=== PATIENT | male | born 1975 | race Caucasian/White ===

== ENCOUNTER 2020-11-06 19:06 | Emergency (ER) | payer MEDICAID, SELFPAY ==
[2020-11-06 19:10] VITALS: BP 174/107; PULSE 79; RESP 12; TEMP 36.9; O2SAT 94; BMI 60.2
--- NOTE | 2020-11-06 20:06 | EKG12_ITS ---
Test Reason : DIZZY Blood Pressure : / mmHG Vent. Rate : 076 BPM Atrial Rate : 076 BPM P-R Int : 158 ms QRS Dur : 126 ms QT Int : 396 ms P-R-T Axes : 040 068 -11 degrees QTc Int : 445 ms Normal sinus rhythm Right bundle branch block Abnormal ECG Confirmed by KENDALL FORD, BOOKER ([id number]), food expeditor ARCADIO MURPHY ([id number]) on 11/09/2020 9:23:24 AM Referred By: PHOEBE Confirmed By:ELIS ARGUETA MD
--- NOTE | 2020-11-06 20:06 | EDS_ITS ---
HPI History of Present Illness Chief Complaint: Dizziness Informant: patient Narrative Narrative: Patient is a 45-year-old male who presents to the emergency department for dizziness sensation, right-sided headache. He states his initial symptoms started Thursday and have been persistent. No known aggravating or relieving factors. He has not tried anything for this. He currently rates his headache as a 3 out of 10. He denies any vision changes. No issues with word finding. He denies any weakness or loss of sensation in extremity. He states he has had some intermittent heart palpitations. He denies having any chest pain. Whenever he has a heart palpitations he does get some shortness of breath. He is currently denying any of these symptoms. He denies any leg swelling or calf pain. No history of coronary artery disease. He states that his right ear has been feeling full after something in it. He denies any sore throat, recent illness including any cough, cold, congestion. No fevers or chills. [facility] Medical History (Updated 11/06/20 @ 21:[address] Robbin Mcdonald DO) Diabetes Hyperlipidemia Hypertension Major depression Home Medications fluoxetine 60 mg PO DAILY 11/06/20 [History Last Taken Unknown] gabapentin 600 mg PO QHS 11/06/20 [History Last Taken Unknown] meclizine 25 mg PO TID PRN #15 tab 11/06/20 [Rx Last Taken Unknown] metformin 750 mg PO DAILY 11/06/20 [History Last Taken Unknown] ramipril 5 mg PO DAILY 11/06/20 [History Last Taken Unknown] Allergy/AdvReac Type Severity Reaction Status Date / Time No Known Allergies Allergy Verified 11/06/20 19:14 Social History Smoking Status: Former smoker ROS ROS ED Constitutional Constitutional ED: Denies chills or fever(s) Eyes Eyes: Denies blurry vision, change in vision or diplopia ENT ENT ED: Denies ear pain, epistaxis, rhinorrhea or sore throat Cardiovascular Cardiovascular: Denies chest pain or palpitations Respiratory/Chest Respiratory/Chest: Denies cough, dyspnea or dyspnea on exertion Gastrointestinal Gastrointestinal: Denies abdominal pain, diarrhea, nausea or vomiting Genitourinary Genitourinary ED: Denies dysuria, hematuria or urinary frequency Musculoskeletal Musculoskeletal: Denies back pain or neck pain Integumentary Denies rash Neurologic Neurologic: Reports headache(s) and other Details: Dizziness ; Denies weakness EXAM Physical Exam Const Vital Signs: 11/06/20 19:10 11/06/20 19:12 11/06/20 21:20 Temperature 98.5 F Temperature Source Oral Pulse Rate 79 75 Respiratory Rate 12 18 Respiratory Pattern Normal Blood Pressure 174/107 H 174/89 H Blood Pressure Mean 129 117 Pulse Ox 94 95 Oxygen Delivery Method Room Air Room Air 11/06/20 22:20 Temperature Temperature Source Pulse Rate 73 Respiratory Rate 17 Respiratory Pattern Blood Pressure 183/117 H Blood Pressure Mean Pulse Ox 94 Oxygen Delivery Method Positive well nourished and well developed General Appearance ED: well developed and NAD HEENT Reports normocephalic, head/scalp atraumatic, TM's clear and moist mucous membranes Tympanic Membrane ED: Yes TM's clear Eyes PERRL and EOMs intact bilaterally Eyes Narrative: Fatigable nystagmus to right. Neck supple General: Negative for tenderness Chest Wall inspection of chest normal Resp normal respiratory effort and clear to auscultation bilaterally Auscultation: Negative for rales, rhonchi or wheezes Cardio regular rate, regular rhythm and no murmurs GI normal to inspection, nondistended, normoactive bowel sounds and non-tender Palpation: soft; Negative for guarding or rebound tenderness present Back/Spine no CVA tenderness Extremity normal to inspection General Extremety ED: Negative for tenderness Neuro oriented x3, CN's II-XII intact bilaterally and no sensory deficits noted Neuro Narrative: No discoordination. NIH of 0. Sensorium / Orientation: alert Motor Exam: strength 5/5 throughout Psych mental status grossly normal Skin no rashes or lesions noted MDM MDM MDM Narrative Medical decision making narrative: Patient presents to the ED for what he feels like persistent vertigo symptoms. He also has a right-sided headache and ear fullness. He has been having some intermittent chest pains but is currently denying this. On arrival to the ED is hypertensive otherwise normal vital signs. Is in no acute distress. No focal deficits appreciated. Will check CT scan of the head as his symptoms have been persistent with a headache. Will check basic lab work and give a dose of meclizine for symptomatic treatment. Patient CT scan of his head did not reveal any acute intracranial abnormality. His lab work-up did not reveal any significant acute abnormality. At on reexamination after the meclizine he is feeling better. At this time will recommend symptomatic treatment at home. He is going to try either Zyrtec or Claritin for the ear discomfort. He is going to follow-up with his PCP. Return precautions are reviewed with him. He understands and is agreeable this plan. This time very low concern for stroke. This was discussed with him. All questions were answered. Lab Data Labs: Laboratory Results - last 24 hr 11/06/20 11/06/20 19:25 19:25 WBC 10.1 RBC 6.40 H Hgb 16.6 H Hct 52.9 MCV 82.7 MCH 25.9 L MCHC 31.4 L RDW Std Deviation 43.6 RDW Coeff of Henry 15.4 H Plt Count 252 MPV 10.8 Immature Gran % (Auto) 0.300 Neut % (Auto) 76.6 H Lymph % (Auto) 14.2 L [place] % (Auto) 6.9 Eos % (Auto) 1.5 Baso % (Auto) 0.5 Absolute Neuts (auto) 7.7 Absolute Lymphs (auto) 1.43 Nucleated RBC % 0 Sodium 139 Potassium 4.0 Chloride 101 Carbon Dioxide 33.0 H Anion Gap 5 BUN 11 Creatinine 0.77 Estim Creat Clear Calc 134.37 Est GFR (MDRD) Af Amer 141 Est GFR (MDRD) Non-Af 117 BUN/Creatinine Ratio 14.3 Glucose 153 H Calcium 9.4 Troponin I High Sens 41.4 Radiography Diagnostic Testing: Radiology Impression Brain CT 11/06/20 20:32 IMPRESSION: Normal unenhanced CT scan of the brain. Electronically Signed: Erasmo Carrasquillo MD at 21:11 EDT , Service support , Discharge Plan Triage Chief Complaint: Dizziness ED Provider: Robbin Mcdonald Dx/Rx/DC Orders Clinical Impression: Dizziness, Elevated blood pressure reading Instructions: ED Dizziness, Uncertain Cause Prescriptions: New meclizine 25 mg tablet 25 mg PO TID PRN (Reason: dizziness) Qty: 15 RF: 0 No Action fluoxetine 40 mg capsule 60 mg PO DAILY RF: 0 metformin 750 mg tablet extended release 24 hr 750 mg PO DAILY RF: 0 gabapentin 600 mg tablet 600 mg PO QHS RF: 0 ramipril 5 mg capsule 5 mg PO DAILY RF: 0 Referrals: RIAZ CHAUHAN [Other] Activity Restrictions/Additional Instructions: Please follow-up with your PCP in 1 to 2 days. If you develop any worsening symptoms then please come back to the emergency department for reevaluation. Disposition Disposition: Home, Self Care Discharge Date/Time: 11/06/20 22:20
[2020-11-06] MEDS: Meclizine HCl 25 MG Tablet PO (20:21)
[2020-11-06 20:28] LABS: Absolute Lymphocyte Count 1.43 X10^3/uL (0.83-4.51); Absolute Neutrophil Count 7.7 X10^3/uL (2.0-7.7); Basophil# 0.05 X10^3/uL; Basophil% 0.5 % (0-1); Eosinophil# 0.15 X10^3/uL; Eosinophils% 1.5 % (0-5); Hematocrit 52.9 % (40-54); Hemoglobin 16.6 g/dL (13.0-16.5); Lymphocyte # 1.43 X10^3/ul (0.83-4.51); Lymphocyte % 14.2 % (19-41); Mean Corp Hgb Conc 31.4 g/dL (32-36); Mean Corpuscular Hgb 25.9 pg (27.0-32.0); Mean Corpuscular Volume 82.7 fL (80-94); Mean Platelet Vol. 10.8 fl (6.2-12.0); Monocyte# 0.69 X10^3/uL; Monocyte% 6.9 % (0-10); NRBC Flagged by Analyzer 0 % (0-5); Neutrophil # 7.71 X10^3/uL (2.7-7.7); Neutrophil % 76.6 % (47-70); Platelet Count 252 K/mm3 (150-450); RBC Distribution Width CV 15.4 % (11.6-14.6); RBC Distribution Width SD 43.6 fl (35.1-43.9); White Blood Count 10.1 K/mm3 (4.4-11.0)
--- NOTE | 2020-11-06 20:32 | CT_ITS ---
STUDY: CT BRAIN WITHOUT CONTRAST REASON FOR EXAM: Male, 45 years old. R sided M[place], dizziness RADIATION DOSAGE (If Supplied By Facility): CTDIvol = ( 44.99 ) mGy, DLP = ( 863.60 ) mGycm TECHNIQUE: Transaxial CT imaging of the brain was performed without administration of intravenous contrast material. Individualized dose optimization techniques were used for this CT. COMPARISON: No relevant priors. FINDINGS: Normal soft tissue structures. Normal calvarium. Normal size ventricles and extra-axial spaces for the patient''s age. Normal white matter tracts of the cerebral hemispheres. Normal basal ganglia and thalami. Normal brainstem. Normal cerebellum. There is no intracranial hemorrhage. There are no findings of an acute ischemic infarction. Normal visualized paranasal sinuses. CT/Brain/Head without Contrast IMPRESSION: Normal unenhanced CT scan of the brain. Electronically Signed: Erasmo Carrasquillo MD at 21:11 EDT , Service support ,
[2020-11-06 20:41] LABS: Anion Gap 5 (5-15); BUN 11 mg/dL (7-18); BUN/Creat Ratio 14.3 RATIO (10-20); Calcium,Total 9.4 mg/dL (8.5-10.1); Chloride 101 mmol/L (98-107); Creatinine, Serum 0.77 mg/dL (0.70-1.30); EST Glomerular Filtration Rate 117 mL/min (>60); Est Glom Filt Rate - Afr Amer 141 mL/min (>60); Estimated Creatinine Clearance 134.37 ml/min; Glucose 153 mg/dL (74-106); Sodium Level 139 mmol/L (136-145); Troponin-I HS 41.4 pg/mL (3.0-78.5)
[2020-11-06 21:20] VITALS: BP 174/89; PULSE 75; RESP 18; O2SAT 95
[2020-11-06 22:20] VITALS: BP 183/117; PULSE 73; RESP 17; O2SAT 94
== END 2020-11-06 22:20 | disposition home or self-care (01) ==
PROVIDERS: Emergency Provider Emergency Medicine
DX: R42 Dizziness and giddiness (principal); I10 Essential (primary) hypertension; E11.9 Type 2 diabetes mellitus without complications; R51.9 Headache, unspecified; R00.2 Palpitations; R06.02 Shortness of breath; E78.5 Hyperlipidemia, unspecified; F32.9 Major depressive disorder, single episode, unspecified; Z79.84 Long term (current) use of oral hypoglycemic drugs; Z79.899 Other long term (current) drug therapy; Z87.891 Personal history of nicotine dependence
CPT/HCPCS: 70450; 80048; 84484; 85025; 93005; 99284; A4216

== ENCOUNTER 2021-10-03 09:40 | Emergency (ER) | payer MEDICAID, SELFPAY ==
[2021-10-03 09:41] VITALS: BP 189/100; PULSE 84; RESP 17; TEMP 36.8; O2SAT 88; BMI 54.0
--- NOTE | 2021-10-03 09:56 | EDS_ITS ---
HPI <EARL Steinberg - Last Filed: 10/03/21 13:29> History of Present Illness Chief Complaint: Suicidal Narrative Narrative: Patient was having an argument with his this morning and put a gun to his head. It was loaded but the safety was on. He states he wanted to hurt himself but then says he was just upset and trying to scare her. She called 911 and he was brought in by EMS. He states he does not feel suicidal and has never attempted to hurt himself before. Denies homicidal ideation. He has been under a lot of stress recently because his bmarsl-yn-pyz is on hospice. He sees a psychiatrist and counselor and takes fluoxetine for depression. He denies smoking or alcohol use but does occasionally use marijuana. Of note he was found to be mildly hypoxic at 88% and states he normally runs at 90% but does not wear O2. [facility] <EARL Steinberg - Last Filed: 10/03/21 13:29> [facility] Medical History (Updated 11/06/20 @ 21:[address] Robbin Mcdonald, ) Diabetes Hyperlipidemia Hypertension Major depression Home Medications fluoxetine 40 mg capsule 60 mg PO DAILY 11/06/20 [History Last Taken Unknown] gabapentin 600 mg tablet 600 mg PO QHS 11/06/20 [History Last Taken Unknown] metformin 750 mg tablet,extended release 24 hr 750 mg PO DAILY 11/06/20 [History Last Taken Unknown] amlodipine 5 mg-benazepril 20 mg capsule 1 cap PO DAILY 10/03/21 [History Last Taken Unknown] Allergy/AdvReac Type Severity Reaction Status Date / Time No Known Allergies Allergy Verified 11/06/20 19:14 Social History Smoking Status: Former smoker ROS <EARL Steinberg - Last Filed: 10/03/21 13:29> ROS ED ROS Narrative Constitutional: Negative for fever, chills, malaise. Eyes: Negative for visual change. ENT: Negative for sore throat, ear pain, rhinorrhea. CVS: Negative for palpitations, chest pain, syncope. Respiratory: Negative for shortness of breath, cough, orthopnea. GI: Negative for abdominal pain, nausea, vomiting, diarrhea, constipation, melena, hematochezia. : Negative for dysuria, hematuria or frequency. Neuro: Negative for headache, motor/sensory dysfunction. Skin: Negative for rash, abscess, or wound. Musc: Negative for joint pain, swelling, trauma. Heme: Negative for easy bruising, bleeding, lymphadenopathy. EXAM <EARL Steinberg - Last Filed: 10/03/21 13:29> Physical Exam Narrative Exam Narrative: CONST: Patient sitting in no acute distress. EYES: Normal inspection. NECK: Normal inspection. RESP: No respiratory distress, CTAB. CVS: Regular rate and rhythm, no murmur, no gallop. SKIN: Color normal, no rash, warm, dry, intact. EXTREMITIES: Normal appearance, no pedal edema. NEURO: Oriented x4. PSYCH: Normal affect. Calm, cooperative. Const Vital Signs: 10/03/21 09:41 10/03/21 10:47 10/03/21 13:46 Temperature 98.2 F 96.9 F L Temperature Source Oral Temporal Pulse Rate 84 74 72 Respiratory Rate 17 18 Blood Pressure 189/100 H 196/107 H 159/100 H Blood Pressure Mean 129 136 119 Pulse Ox 88 93 91 Oxygen Delivery Method Room Air Room Air Nasal Cannula Oxygen Flow Rate (L/min) 3 10/03/21 16:47 Temperature Temperature Source Pulse Rate 78 Respiratory Rate 16 Blood Pressure 154/92 H Blood Pressure Mean 112 Pulse Ox 92 Oxygen Delivery Method Nasal Cannula Oxygen Flow Rate (L/min) 3 <Dr. Myles Araujo DO - Last Filed: 10/03/21 17:19> Physical Exam Const Vital Signs: 10/03/21 09:41 10/03/21 10:47 10/03/21 13:46 Temperature 98.2 F 96.9 F L Temperature Source Oral Temporal Pulse Rate 84 74 72 Respiratory Rate 17 18 Blood Pressure 189/100 H 196/107 H 159/100 H Blood Pressure Mean 129 136 119 Pulse Ox 88 93 91 Oxygen Delivery Method Room Air Room Air Nasal Cannula Oxygen Flow Rate (L/min) 3 10/03/21 16:47 Temperature Temperature Source Pulse Rate 78 Respiratory Rate 16 Blood Pressure 154/92 H Blood Pressure Mean 112 Pulse Ox 92 Oxygen Delivery Method Nasal Cannula Oxygen Flow Rate (L/min) 3 MDM <EARL Steinberg - Last Filed: 10/03/21 13:29> MDM MDM Narrative Medical decision making narrative: EARL note: Patient presents with suicidal ideation and held a gun to his head this morning. He appears well and nontoxic. Vital signs within normal limits. He has a somewhat flat affect but is calm and cooperative during my exam. Labs are within normal limits. Tox screen positive for THC, alcohol negative. COVID-19 test negative. Patient was initially 88% on room air and placed on 2 L but was weaned and is now 93% on room air. He states he always runs around 90%. He does have very scant wheezing might have some underlying pulmonary disease but no acute issues today. Patient is medically cleared for transfer to psychiatric facility. Was evaluated by social work who will work on placement. 1. Suicidal ideation I have personally performed a face to face assessment of the patient and have reviewed the SUHAIL Note. I performed a substantive portion of the visit including all aspects of the following. My gardner findings include: History: Patient is a 46-year-old male who presents with suicidal gesture that occurred today. Patient states he was in an argument with his . Patient states he put a gun to his head. Patient states the gun was loaded with the safety was on. Patient states he has a history of depression and takes fluoxetine for that. Patient states he sees a psychiatrist and a counselor. Currently, patient denies any suicidal or homicidal ideations. Exam: Vital signs are stable except for an elevated blood pressure of 196/107. Patient is afebrile. Patient is in no acute distress. Oral mucosa is pink and moist. Neck is supple. Trachea is midline. There is no JVD. Heart was regular rate and rhythm. Lungs are clear and equal bilaterally. Abdomen is soft. Bowel sounds are normal. There is no tenderness. Cranial nerves II through XII are intact. There are no focal motor or sensory deficits noted. Patient does have a slightly flat affect. Patient makes good eye contact. Currently the patient denies any suicidal or homicidal ideations. Medical Decision Making: CBC was within normal limits. Basic metabolic profile was within normal limits. COVID-19 rapid antigen was obtained and was negative. Urine drug screen and serum alcohol levels were obtained and are pending. Portable 1 view chest x-ray was obtained. On my interpretation, lung bowles are clear. There is normal cardiac silhouette. Bony thorax is normal. There is no acute process noted. Radiologist also interpreted the x-ray and agrees. buffing line set up worker will evaluate the patient. Lab Data Labs: Laboratory Results - last 24 hr 10/03/21 10/03/21 10/03/21 10:40 10:40 10:40 WBC 11.0 RBC 6.11 Hgb 16.5 Hct 51.4 MCV 84.1 MCH 27.0 MCHC 32.1 RDW Std Deviation 44.1 H RDW Coeff of Henry 14.7 H Plt Count 236 MPV 10.2 Immature Gran % (Auto) 0.600 Neut % (Auto) 77.3 H Lymph % (Auto) 15.4 L [place] % (Auto) 4.8 Eos % (Auto) 1.4 Baso % (Auto) 0.5 Absolute Neuts (auto) 8.5 H Absolute Lymphs (auto) 1.70 Nucleated RBC % 0 Sodium 139 Potassium 4.3 Chloride 102 Carbon Dioxide 33.0 H Anion Gap 4 L BUN 12 Creatinine 0.81 Estim Creat Clear Calc 126.41 Est GFR (MDRD) Af Amer 132 Est GFR (MDRD) Non-Af 109 BUN/Creatinine Ratio 14.8 Glucose 167 H Calcium 9.1 Urine Opiates Screen Urine Methadone Screen Ur Barbiturates Screen Ur Phencyclidine Scrn Ur Amphetamines Screen MDMA (Ecstasy) Screen U Benzodiazepines Scrn Urine Cocaine Screen U Cannabinoids Screen Ur Drug Screen Comment Ethyl Alcohol < 3.0 10/03/21 11:12 WBC RBC Hgb Hct MCV MCH MCHC RDW Std Deviation RDW Coeff of Henry Plt Count MPV Immature Gran % (Auto) Neut % (Auto) Lymph % (Auto) [place] % (Auto) Eos % (Auto) Baso % (Auto) Absolute Neuts (auto) Absolute Lymphs (auto) Nucleated RBC % Sodium Potassium Chloride Carbon Dioxide Anion Gap BUN Creatinine Estim Creat Clear Calc Est GFR (MDRD) Af Amer Est GFR (MDRD) Non-Af BUN/Creatinine Ratio Glucose Calcium Urine Opiates Screen NEGATIVE Urine Methadone Screen NEGATIVE Ur Barbiturates Screen NEGATIVE Ur Phencyclidine Scrn NEGATIVE Ur Amphetamines Screen NEGATIVE MDMA (Ecstasy) Screen NEGATIVE U Benzodiazepines Scrn NEGATIVE Urine Cocaine Screen NEGATIVE U Cannabinoids Screen POSITIVE H Ur Drug Screen Comment Ethyl Alcohol Radiography Diagnostic Testing: Clinical Impression(s) from Imaging Studies Chest X-Ray 10/03/21 10:45 IMPRESSION: Normal x-ray examination of the chest. Electronically Signed: Soloomn Suresh MD at 11:12 EDT , <Dr. Myles Araujo, DO - Last Filed: 10/03/21 17:19> [facility] MDM Narrative Medical decision making narrative: PA note: Patient presents with suicidal ideation and held a gun to his head this morning. He appears well and nontoxic. Vital signs within normal limits. He has a somewhat flat affect but is calm and cooperative during my exam. Labs are within normal limits. Tox screen positive for THC, alcohol negative. COVID-19 test negative. Patient was initially 88% on room air and placed on 2 L but was weaned and is now 93% on room air. He states he always runs around 90%. He does have very scant wheezing might have some underlying pulmonary disease but no acute issues today. Patient is medically cleared for transfer to psychiatric facility. Was evaluated by social work who will work on placement. 1. Suicidal ideation I have personally performed a face to face assessment of the patient and have reviewed the SUHAIL Note. I performed a substantive portion of the visit including all aspects of the following. My gardner findings include: History: Patient is a 46-year-old male who presents with suicidal gesture that occurred today. Patient states he was in an argument with his . Patient states he put a gun to his head. Patient states the gun was loaded with the safety was on. Patient states he has a history of depression and takes fluoxetine for that. Patient states he sees a psychiatrist and a counselor. Currently, patient denies any suicidal or homicidal ideations. Exam: Vital signs are stable except for an elevated blood pressure of 196/107. Patient is afebrile. Patient is in no acute distress. Oral mucosa is pink and moist. Neck is supple. Trachea is midline. There is no JVD. Heart was regular rate and rhythm. Lungs are clear and equal bilaterally. Abdomen is soft. Bowel sounds are normal. There is no tenderness. Cranial nerves II through XII are intact. There are no focal motor or sensory deficits noted. Patient does have a slightly flat affect. Patient makes good eye contact. Currently the patient denies any suicidal or homicidal ideations. Medical Decision Making: CBC was within normal limits. Basic metabolic profile was within normal limits. COVID-19 rapid antigen was obtained and was negative. Urine drug screen and serum alcohol levels were obtained and are pending. Portable 1 view chest x-ray was obtained. On my interpretation, lung bowles are clear. There is normal cardiac silhouette. Bony thorax is normal. There is no acute process noted. Radiologist also interpreted the x-ray and agrees. buffing line set up worker will evaluate the patient. She felt the patient would require transfer to a psychiatric facility. She is attempting to have the patient placed. Patient is agreeable with plan. All questions were answered. Lab Data Attestation: I reviewed the patient's lab results. Labs: Laboratory Results - last 24 hr 10/03/21 10/03/21 10/03/21 10:40 10:40 10:40 WBC 11.0 RBC 6.11 Hgb 16.5 Hct 51.4 MCV 84.1 MCH 27.0 MCHC 32.1 RDW Std Deviation 44.1 H RDW Coeff of Henry 14.7 H Plt Count 236 MPV 10.2 Immature Gran % (Auto) 0.600 Neut % (Auto) 77.3 H Lymph % (Auto) 15.4 L [place] % (Auto) 4.8 Eos % (Auto) 1.4 Baso % (Auto) 0.5 Absolute Neuts (auto) 8.5 H Absolute Lymphs (auto) 1.70 Nucleated RBC % 0 Sodium 139 Potassium 4.3 Chloride 102 Carbon Dioxide 33.0 H Anion Gap 4 L BUN 12 Creatinine 0.81 Estim Creat Clear Calc 126.41 Est GFR (MDRD) Af Amer 132 Est GFR (MDRD) Non-Af 109 BUN/Creatinine Ratio 14.8 Glucose 167 H Calcium 9.1 Urine Opiates Screen Urine Methadone Screen Ur Barbiturates Screen Ur Phencyclidine Scrn Ur Amphetamines Screen MDMA (Ecstasy) Screen U Benzodiazepines Scrn Urine Cocaine Screen U Cannabinoids Screen Ur Drug Screen Comment Ethyl Alcohol < 3.0 10/03/21 11:12 WBC RBC Hgb Hct MCV MCH MCHC RDW Std Deviation RDW Coeff of Henry Plt Count MPV Immature Gran % (Auto) Neut % (Auto) Lymph % (Auto) [place] % (Auto) Eos % (Auto) Baso % (Auto) Absolute Neuts (auto) Absolute Lymphs (auto) Nucleated RBC % Sodium Potassium Chloride Carbon Dioxide Anion Gap BUN Creatinine Estim Creat Clear Calc Est GFR (MDRD) Af Amer Est GFR (MDRD) Non-Af BUN/Creatinine Ratio Glucose Calcium Urine Opiates Screen NEGATIVE Urine Methadone Screen NEGATIVE Ur Barbiturates Screen NEGATIVE Ur Phencyclidine Scrn NEGATIVE Ur Amphetamines Screen NEGATIVE MDMA (Ecstasy) Screen NEGATIVE U Benzodiazepines Scrn NEGATIVE Urine Cocaine Screen NEGATIVE U Cannabinoids Screen POSITIVE H Ur Drug Screen Comment Ethyl Alcohol Radiography Chest X-Ray - ED: 1 View, Read by ED Physician, Read by Radiologist and No Acute Disease Diagnostic Testing: Clinical Impression(s) from Imaging Studies Chest X-Ray 10/03/21 10:45 IMPRESSION: Normal x-ray examination of the chest. Electronically Signed: Solomon Suresh MD at 11:12 EDT Reading Location ID and State: [facility] / [place] , Service support , Discharge Plan Triage Chief Complaint: Suicidal ED Midlevel Provider: Munira Mitchell ED Provider: Myles Araujo Dx/Rx/DC Orders Prescriptions: No Action fluoxetine 40 mg capsule 60 mg PO DAILY Label Comments: Take 1 capsule by mouth once daily. metformin 750 mg tablet extended release 24 hr 750 mg PO DAILY Label Comments: Take 2 tablets by mouth daily with breakfast. Rx Instructions: 2 tabs gabapentin 600 mg tablet 600 mg PO QHS Label Comments: Take 1 tablet by mouth daily at bedtime for 90 days. amlodipine-benazepril 5-20 mg capsule 1 cap PO DAILY Label Comments: Take 1 capsule by mouth once daily. Primary Care Provider: RIAZ CHAUHAN Referrals: RIAZ CHAUHAN [Other]
--- NOTE | 2021-10-03 10:10 | ED.RN ---
NO SITTER AT THIS TIME PENDING SW ASSESSMENT PER PA
--- NOTE | 2021-10-03 10:45 | RAD_ITS ---
STUDY: X-RAY CHEST REASON FOR EXAM: Male, 46 years old. Cough TECHNIQUE: Single AP portable view of the chest. COMPARISON: None. FINDINGS: The lungs are clear and expanded. There is no demonstrated pleural abnormality. Normal size heart. Normal mediastinum and solitario. Normal visualized pulmonary arteries. Normal visualized aortic arch and descending thoracic aorta. Normal visualized thoracic spine. Normal visualized ribs, clavicles, and shoulders. There is no demonstrated abnormality of the visualized soft tissue structures of the upper abdomen. RAD/Chest 1 View (Portable) IMPRESSION: Normal x-ray examination of the chest. Electronically Signed: Solomon Suresh MD at 11:12 EDT ,
[2021-10-03 10:46] LABS: Absolute Neutrophil Count 8.5 X10^3/uL (2.0-7.7); Basophil# 0.05 X10^3/uL; Basophil% 0.5 % (0-1); Eosinophil# 0.15 X10^3/uL; Eosinophils% 1.4 % (0-5); Hematocrit 51.4 % (40-54); Hemoglobin 16.5 g/dL (13.0-16.5); Lymphocyte % 15.4 % (19-41); Mean Corp Hgb Conc 32.1 g/dL (32-36); Mean Corpuscular Volume 84.1 fL (80-94); Mean Platelet Vol. 10.2 fl (6.2-12.0); Monocyte# 0.53 X10^3/uL; Monocyte% 4.8 % (0-10); NRBC Flagged by Analyzer 0 % (0-5); Neutrophil # 8.54 X10^3/uL (2.7-7.7); Neutrophil % 77.3 % (47-70); Platelet Count 236 K/mm3 (150-450); RBC Distribution Width CV 14.7 % (11.6-14.6); RBC Distribution Width SD 44.1 fl (35.1-43.9); Red Blood Count 6.11 M/mm3 (4.6-6.2)
[2021-10-03 10:47] VITALS: BP 196/107; PULSE 74; O2SAT 93
[2021-10-03 11:00] LABS: Anion Gap 4 (5-15); BUN 12 mg/dL (7-18); BUN/Creat Ratio 14.8 RATIO (10-20); Calcium,Total 9.1 mg/dL (8.5-10.1); Chloride 102 mmol/L (98-107); Creatinine, Serum 0.81 mg/dL (0.70-1.30); EST Glomerular Filtration Rate 109 mL/min (>60); Est Glom Filt Rate - Afr Amer 132 mL/min (>60); Estimated Creatinine Clearance 126.41 ml/min; Glucose 167 mg/dL (74-106); Potassium 4.3 mmol/L (3.5-5.1); Sodium Level 139 mmol/L (136-145)
[2021-10-03 11:17] LABS: Alcohol, Blood (Medical)-Serum < 3.0 mg/dL
[2021-10-03 11:39] LABS: Amphetamine Urine VISTA NEGATIVE (<1000 ng/mL); Barbiturate Urine VISTA NEGATIVE (< 200 ng/mL); Benzodiazepine Urine VISTA NEGATIVE (< 200 ng/mL); Cocaine Urine VISTA NEGATIVE (< 300 ng/mL); Ecstacy Urine VISTA NEGATIVE (< 500 ng/mL); Methadone Urine VISTA NEGATIVE (< 300 ng/mL); PCP Urine VISTA NEGATIVE (< 25 ng/mL); THC Urine VISTA POSITIVE (< 50 ng/mL); Vista UDS pH Range 5
[2021-10-03 13:46] VITALS: BP 159/100; PULSE 72; RESP 18; TEMP 36.1; O2SAT 91
--- NOTE | 2021-10-03 14:17 | ED.RN ---
Per Keesha from social work and Dr Araujo pt is not suicidal at this time and it is ok to discontinue sitter.
[2021-10-03 16:47] VITALS: BP 154/92; PULSE 78; RESP 16; O2SAT 92
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
[2021-10-03 18:18] VITALS: O2SAT 93
--- NOTE | 2021-10-03 19:41 | CM.ED ---
Addendum entered by Keesha Galvez 10/03/21 21:35: KATIE received call from [facility]. Pt has been accepted to [facility]. Accepting physician is Dr. Diane. Pt is going to [facility]. RN to RN [phone]. KATIE updated RN. KATIE faxed [place] Sl[place] to [facility]. SW in to speak with pt. SW updated pt that he has been accepted to [facility] and will discharge there. Pt gave permission for this worker to call Nanci to update. KATIE placed a call to pt's Nanci and updated her that pt will go to [facility]. Nanci asked what pt is being treated for medically. KATIE informed Nanci that medically, pt is cleared for discharge to Psych Hospital. Nanci states understanding. KATIE placed a call to [facility] and updated them to disregard referral. KATIE had received message earlier from Kari Flores at [facility] requesting update on if pt was placed in psych hospital and results of pt's toxicology results. KATIE faxed requested information to [facility] and wrote on fax coversheet that pt has been accepted to [facility]. Keesha aGlvez RESTAURANT ASSISTANT MANAGER, CHIEF PSYCHOLOGIST Original Note: Social Work Note Referral sent to [facility]. KATIE received call from Avis at [facility] stating they are not able to accept pt due to pt needing Oxygen. Avis states that they would need to have 1 on 1 for pt and they already have someone that is needing 1 on 1, so they cannot accept as they do not have the staffing. KATIE asked Avis if they would reconsider if pt could be without Oxygen and Avis state that they cannot take the risk as pt is wheezy. KATIE faxed Referrals to [facility] and [facility]. Keesha Galvez RESTAURANT ASSISTANT MANAGER, CHIEF PSYCHOLOGIST
[2021-10-03 21:11] VITALS: BP 168/88; PULSE 81; RESP 16; O2SAT 93
[2021-10-03] MEDS: FLUoxetine 20 MG Capsule 60 MG PO (21:39)
[2021-10-03] MEDS: Aspirin 81 MG TAB.CHEW PO (21:39)
[2021-10-03] MEDS: Atorvastatin Calcium 20 MG Tablet PO (21:39)
[2021-10-03] MEDS: amLODIPine 5 MG Tablet PO (21:39)
[2021-10-03] MEDS: Gabapentin 600 MG Tablet PO (21:39)
--- NOTE | 2021-10-03 21:54 | NURSING ---
Addendum entered by Paige Murray 10/04/21 04:44: ETA [phone]/[id number]. GIULIANA FOLWER Original Note: CALLED PHYSICIANS ETA [phone]/7A DUE TO DISTANCE AND SIZE OF PT.
[2021-10-04 01:00] VITALS: RESP 16
--- NOTE | 2021-10-04 01:43 | ED.RN ---
ASSUMED CARE OF THIS PT AT 0059
[2021-10-04 02:00] VITALS: RESP 18
[2021-10-04 03:00] VITALS: BP 169/87; PULSE 84; RESP 18; O2SAT 91
[2021-10-04 06:28] VITALS: BP 157/81; PULSE 96; RESP 18; TEMP 36.6; O2SAT 92
--- NOTE | 2021-10-04 07:14 | ED.RN ---
LEFT VOICEMAIL TO CALL THIS NURSE BACK FOR REPORT.
--- NOTE | 2021-10-04 07:24 | NURSING ---
[id number] CALLED PHYSICANS, TALKED TO FAROOQ. JORGE ALBERTO SHOULD BE HERE BETWEEN 3 [facility] [phone]
--- NOTE | 2021-10-04 08:42 | ED.RN ---
LEFT A SECOND VOICEMAIL TO GIVE REPORT.
== END 2021-10-04 08:54 ==
PROVIDERS: Physician Assistant; Emergency Provider Emergency Medicine; Visit Provider Emergency Medicine
DX: F32.9 Major depressive disorder, single episode, unspecified (principal); E11.9 Type 2 diabetes mellitus without complications; R45.851 Suicidal ideations; R09.02 Hypoxemia; Z20.822 Contact with and (suspected) exposure to COVID-19; I10 Essential (primary) hypertension; E78.5 Hyperlipidemia, unspecified; Z79.84 Long term (current) use of oral hypoglycemic drugs; Z79.899 Other long term (current) drug therapy; Z87.891 Personal history of nicotine dependence
CPT/HCPCS: 36415; 71045; 80048; 80307; 82077; 85025; 87811; 99285

== ENCOUNTER 2025-01-06 08:00 | Outpatient (RCR) | payer MEDICAID, SELFPAY ==
--- NOTE | 2025-01-06 09:30 | BH.NA_ITS ---
Physical Data Vital Signs Pulse Rate: 80 Blood Pressure: 180/90 Height/Weight Height: 1.83 m Weight:: 174.633 kg Weight in Pounds: 385.0 lbs Current Medication Compliance Medication Compliance Do you take your medication as prescribed?: No (does not take the Metformin prescribed by PCP due to side effects) Functional Assessment Sleep Pattern Describe any problems with sleeping: Client states he sleeps about 6 hours per night. Sensory/Communication Assess Communication Problems Do you have difficulty understanding what people are saying?: No Medical Problems/History Cardiac Conditions Cardiovascular: Hypertension and Hyperlipidemia Neurological Conditions Neurological: Other (See comments) (neuropathy in feet) Metabolic Conditions Metabolic: Diabetes (type 2 diabetes since 2017- has been prescribed Metformin but does not take due to side effects. Also prescribed Farxiga in the past but states it was too expensive and he was unable to get. Client states his A1C is between 6.8-7.2) Surgical History Surgical History Have you had any surgeries? If so, list type and date:: Yes (hernia repair) Substance Abuse Substance Abuse Please describe substance abuse in the last 30 days:: Client reports alcohol use in the past but denies any recent. Client states he was a tobacco user in the past but quit around age 38. Client states he was using meth on a regular basis for about 3 years and he has been sober from meth use for about 2 months. Client states he is a daily marijuana user. Client drinks 2 cups of coffee per day plus 20oz of diet soda. Mental Status Summary Mental Status Significant Findings/Observations on Appearance and Mood:: Client is alert and oriented x 4. Client is casually groomed. Client is cooperative with assessment. Client makes good eye contact. Client's voice has normal rate and volume. Client has a somewhat restricted affect. Client makes logical associations and has normal processing. Client denies delusions/hallucinations. Client reports chronic passive SI, but denies plan or intent. Suicide Assessment Suicidal Ideation Are you currently or have you been suicidal in the past?: Yes Suicidal Intentional Rating Scale (SIRS): Suicidal thoughts (past) (reports chronic passive SI, denies plan/intent) Physician Notification Past Psychiatric History MH Treatment Hx Past Psychiatric Medications:: Prozac, and states he thinks he has been on another SSRI before as well Age of first mental health symptoms: Client states he first took medication for depression around age 45 but has not consistently been on mental health medication. Describe (age, circumstance, etc) any past hospitalizations: [facility] in 2021- self interrupted suicide attempt where he held a gun to his head. Client has a history of 2 other suicide attempts. Current providers for mental health treatment (counselor, psychiatrist, residential case manager, etc.): Vickie Flores at [facility] Risk Assessment Age Age: Less than 60 Mental Status Mental Status: Willing & able to ask for assistance when needed Physical Status Physical Status: No problems Impairments Impairments: None Elimination Elimination: Continent AND independent Gait or Balance Gait or Balance: Walks independently Hx of Falls History of falls in the past 6 months: No known history Medications/Substances Others:: Antihypertensives Medications/substances used within the past 24 hours or ordered to administer: 1-2 of the medications/substances listed above Total Score Total Points:: 1 RN Summary of Impressions Impressions Recommendations Impressions: Psychiatric Issues: major depressive disorder, history of methamphetamine use disorder Impression: General Medical Conditions: Client has a history of 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 Client states he has been ordered Metformin but can not tolerate the side effects, and was ordered Farxiga but could not afford it. Encouraged client to talk to PCP about other options. Briefly discussed low carbohydrate foods, drinks, need for wound care if he gets any open areas to feet, etc. Level of Care How do the client's current symptoms and functional deficits support need for this level of care?: Client was referred to IOP at this time by his outpatient provider due to mental health stressors. Client recently from his and lost his apartment and has been living in his car/staying with a friend. Client reports he has had chronic passive SI most of his life, and does have a history of suicide attempts. Client states he has a friend whose has been through this IOP and it helped improve her life so much that he wanted to try IOP as well. Client reports anhedonia, decreased motivation, and isolation. Client denies active SI at this time, but states he always has passive SI. IOP will promote gains and prevent further decompensation while providing social support and skills training. Nutritional Screen Height/Weight Height: 1.83 m Weight:: 174.633 kg Weight in Pounds: 385.0 lbs Nutrition Screening Normal Weight: 174.633 kg Normal/Usual Weight in Pounds: 385.0 lbs Have you lost weight without trying: No Have you been eating poorly because of a decreased appetite: No Recently been on tube feeds, TPN, or have any nutritional access device in place: No Have any large open wounds or wounds that are not healing: No Calculated Weight Change: 0 Change in weight Score: 0 MST Screening Tool Score: 0
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
[2025-01-06 10:34] VITALS: PULSE 80
[2025-01-06 10:39] VITALS: BP 180/90
--- NOTE | 2025-01-06 15:35 | BH.MTP ---
Master Treatment Plan Patient Information Program Physician:: Dr. Neil Primary Therapist:: Barb Rico, [facility] Psychiatric Diagnoses Psychiatric Diagnoses:: Major depression F33.2 Stimulant use disorder Diagnosis Code(s):: F33.2 Estimated LOS Estimated LOS (in weeks):: 6 Problem/Goal #1 Problem/Goal #1 Stated Goal:: Client will reduce depressive symptoms, low motivation, and anhedonia due to Major Depressive Disorder through Intensive Outpatient Program Description of Barriers: Potential barriers include: poor sleep, stressors in living situation, cognitive distortions, and low motivation. Functional Impact: At admission pt states having severe depression, anxiety and PTSD. Is two months clean of methamphetamine use. Reports that depression and anxiety have been there for Most of his life. Patient reports that him and were having more problems secondary to his drug use. Both him and were both using. Lost their apartment and now are homeless and living at [facility]. Has been living there since December 28 and can be there until likely the end of year. Patient admits to having low self esteem. Currently is in a decent mood but this has been very up and down. Describes that little things change his mood very quickly. Did have an aborted suicide attempt in 2021 after putting loaded gun to head. Was subsequently admitted to [facility] following this event. Endorses having regular anxiety, partially secondary to finances. Objectives Objective #1: Stated Objective: Client will learn and utilize 2-3 healthy coping strategies to manage depressive symptoms. Interventions: Therapist and group therapy will utilize CBT techniques to assist client with understanding the connection between thoughts, feelings and behaviors. Education will be provided on behavioral activation. Therapist will assist client in learning internal coping strategies to manage depressive symptoms, along with helping client identify triggers. Discharge Criteria: Client will have achieved this goal when can verbalize and has practiced at least 2 healthy coping strategies that successfully manage depressive symptoms. Objective #2: Stated Objective: Client will identify and replace 2-3 negative thinking patterns that reinforce depressive symptoms. Interventions: Therapist will assist client in developing an awareness of the cognitive messages that reinforce depressive thinking. Therapist will also assist client in challenging negative thinking patterns. Discharge Criteria: Client will have achieved this goal when can identify at least 2 negative thinking patterns, replace negative thinking with more positive, affirmative messages and state no longer having thoughts of hurting self. Target Date: 02/17/25 Review Date: 02/03/25 Problem/Goal #2 Problem/Goal #2 Stated Goal:: Client will reduce overall frequency, intensity, and duration of the anxiety so that daily functioning is not impaired. Description of Barriers: Potential barriers include: poor sleep, stressors in living situation, cognitive distortions, and low motivation. Functional Impact: At admission pt states having severe depression, anxiety and PTSD. Is two months clean of methamphetamine use. Reports that depression and anxiety have been there for Most of his life. Patient reports that him and were having more problems secondary to his drug use. Both him and were both using. Lost their apartment and now are homeless and living at [facility]. Has been living there since December 28 and can be there until likely the end of year. Patient admits to having low self esteem. Currently is in a decent mood but this has been very up and down. Describes that little things change his mood very quickly. Did have an aborted suicide attempt in 2021 after putting loaded gun to head. Was subsequently admitted to [facility] following this event. Endorses having regular anxiety, partially secondary to finances. Objectives Objective #1: Stated Objective: Client will learn and implement 2-3 calming skills to reduce overall anxiety and manage anxiety symptoms. Interventions: Therapist and group sessions will help client identify physiological warning signs of anxiety, increase awareness of thoughts that increase anxiety, and identify behaviors that reinforce anxious symptoms. Group and individual counseling will teach client calming skills to help manage anxious symptoms. Discharge Criteria: Client will have achieved this goal when can verbalize at least 2 calming skills and reports skills successfully help reduce anxious symptoms. Target Date: 02/17/25 Review Date: 02/03/25 Objective #2: Stated Objective: Client will identify 2-3 anxiety triggers and 2 coping skills to use when feeling anxious. Interventions: Therapist will assist client in exploring what triggers anxiety and teach client coping strategies to effectively manage anxiety symptoms. Discharge Criteria: Client will have met this goal when can identify at least 2 triggers to anxiety and verbalize two healthy ways to cope with feelings of anxiety. Target Date: 02/17/25 Review Date: 02/03/25
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
--- NOTE | 2025-01-09 06:11 | BH.DR.ITP ---
Initial Treatment Plan Patient Information Visit Information: ADMISSION DATE: 01/06/2025 EXPECTED LOS: 4-6 weeks Problems/Symptoms Problem #1:: depression Symptom:: low self esteem, low mood, poor energy, minimal motivation
--- NOTE | 2025-01-09 09:00 | BH.SGPN.GN ---
Behaviors/Verbalizations/Mental Status: [] Pt alert and oriented, Casually dressed and groomed. Eye contact good. Motor activity appropriate. Speech within normal limits. Affect congruent, mood calm. Thoughts linear, logical, no signs of hallucinations or delusions. Reviewed pt?s symptom tracker, 1/5 with 5 being severe, for suicidal ideation, indicates a 0/5 for plan, and intent to kill self. Pt does not appear to be imminent risk to harm self.01/09/25. Client Response/Progress/Benefit: []Pt was an active participant in group discussions. Attentive. Per patients daily symptom tracker, pt indicates a 4/5 for depression and a 3/5 for anxiety, with 5 being severe. This was pt's first process group. 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 Pt's stressor was his mother in law passing way, stating that he is still dealing with the grief and shock that came with it. He stated his overall mood as depressed. Pt was supportive and attentive to others in the group. Pt seemed to benefit from support from peers. Will continue IOP tx to promote healthy coping mechanisms, reduce negative thinking patterns, and increase self-confidence.
--- NOTE | 2025-01-09 10:15 | BH.SGPN.GN ---
Behaviors/Verbalizations/Mental Status: [] Eye contact is good. Motor activity is appropriate. Appearance is casual. Speech is Appropriate. Mood is content. Affect is congruent. Thoughts are linear and logical. No evidence of psychosis. Client Response/Progress/Benefit: [] Pt engaged in session AEB listening attentively to others and providing input throughout. Pt engaged in activity, able to connect how it can be uncomfortable and difficult to practice acceptance when situations are out of one?s own control. Identified what they are struggling to accept in personal life. Worked with peer group to define acceptance and identify the benefits that acceptance can bring. Benefits included; reduce anxiety, reduced stress, helps one to focus on situations we can change, and decreased negative self-talk. Seemed to benefit from increased awareness of the meaning as well as the importance of acceptance. Will continue in IOP to improve emotion regulation, challenge distortions, and prevent decompensation. Narrative Note: []
--- NOTE | 2025-01-09 11:15 | BH.SGPN.GN ---
Behaviors/Verbalizations/Mental Status: []Pt alert and oriented, casually dressed and groomed. Eye contact good. Motor activity appropriate. Speech within normal limits. Affect congruent, mood anxious and depressed. Thoughts linear, logical, no signs of hallucinations or delusions. Client Response/Progress/Benefit: [] Pt responded well to session AEB taking notes and contributing to discussion throughout. Pt engaged as group continued discussion on acceptance and the mental health benefits of practicing acceptance. Pt and peers identified what makes acceptance challenging and pt completed a self-reflection exercise on what is hard to accept in pt's life. Pt identified something that is currently hard to accept as ?my childhood trauma.? Pt stated by not accepting this, it leads to ?numbing with drugs but I?m two months sober now?. Group identified strategies to increase acceptance. Pt noted wanting to work on ?asking for help as a strategy for improving acceptance. Pt appeared to benefit from gaining insight and learning strategies to increase acceptance. Pt will continue IOP tx to prevent decompensation, improve daily functioning, and gain healthy coping skills. ? Narrative Note: []
--- NOTE | 2025-01-10 10:10 | BH.SGPN.GN ---
Behaviors/Verbalizations/Mental Status: [] Pt alert and oriented, disheveled. Eye contact good. Motor activity appropriate. Speech within normal limits. Affect congruent, mood depressed. Thoughts linear, logical, no signs of hallucinations or delusions. Client Response/Progress/Benefit: [] Pt responded well to session AEB sharing and listening attentively to others. Group provided examples of types of support (professional, pets, hobbies, community, spouse, spirituality, co-workers, family, etc) as well as benefits of having social support, including: validation, get perspective, and accountability. Pt also participated in group discussion regarding the barriers to accessing support and pt?s barriers included; isolation, overconfidence, reliance on unhealthy coping, and self-sabotage. Pt participated in experiential activity illustrating the impact communication, boundaries, and patience play in creating healthy support systems. Pt appeared to benefit from increased knowledge of the benefits of social support and greater self-awareness. Pt to continue IOP to prevent decompensation, increase healthy coping, and improve functioning. Narrative Note: []
--- NOTE | 2025-01-10 11:10 | BH.SGPN.GN ---
Behaviors/Verbalizations/Mental Status: []Client alert and oriented, casually dressed and groomed. Eye contact good. Motor activity appropriate. Speech within normal limits. Affect congruent, mood content. Thoughts linear, logical, no signs of hallucinations or delusions. Client Response/Progress/Benefit: [] Pt participated throughout AEB contributing to discussion, providing examples, and taking notes. Pt provided input during discussion on the types of support our supports can provide. Pt able to identify current support system and barriers that get in the way of using supports. Pt reported after identifying what type of supports pt receives, pt gained awareness that pt could benefit from more social and emotional support by continuing to attend IOP tx, as well as joining an online support group. Pt seemed to benefit from identifying the type of support pt needs to work on improving. Pt recommended to continue IOP tx to promote increase skill application, improve mood stability, and prevent decompensation. Narrative Note: []
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
--- NOTE | 2025-01-16 10:10 | BH.SGPN.GN ---
Behaviors/Verbalizations/Mental Status: []Pt alert and oriented, casually dressed and groomed. Eye contact good. Motor activity appropriate. Speech within normal limits. Affect congruent, mood content. Thoughts linear, logical, no signs of hallucinations or delusions. Client Response/Progress/Benefit: [] Pt receptive to session AEB contributing to group discussion, as well as listening attentively to others, and taking notes. Worked with group to brainstorm the positive and negative aspects of stress on physical and mental health as well as the impact of distress on performance, relationships, and mental health. Pt shared their current personal top stressors to be: housing, maintaining sobriety, and finding work. Shared when feeling overwhelmed with stress pt tends become angry. Benefited from increased awareness of positive and negative stress as well as how stress impact individuals. Will continue in IOP to prevent decompensation, improve daily functioning, and reduce negative thinking patterns. Narrative Note: []
--- NOTE | 2025-01-16 11:15 | BH.SGPN.GN ---
Behaviors/Verbalizations/Mental Status: []Eye contact is good. Motor activity is appropriate. Appearance is disheveled. Speech is Appropriate. Mood is engaged. Affect is engaged. Thoughts are linear and logical. No evidence of psychosis. Client Response/Progress/Benefit: [] Pt was an attentive participant in group discussions and actively engaged during experiential activity. Attentive during psychoeducation on the 4 A's (Avoid, adapt, alter, accept) of coping with stress. Identified one of the 4 A's to address one their top stressors. Participated with peers on identifying the connection between the experiential activity and utilization of stress management skills. Pt shared wanting to work on avoiding negative people if he can because they impact his self-worth. Benefited from increased awareness of stress management strategies. Pt will continue IOP to prevent decompensation, improve daily functioning, and gain healthy coping skills. Narrative Note: []
--- NOTE | 2025-01-16 19:26 | BH.MDN_ITS ---
Multi-Disciplinary Note Note 45-min Individual: Time Started:: 09:00 Date: 01/16/25 Purpose of session/treatment goals addressed:: Purpose of session was to address goals 1 and 2 from MTP. Eye Contact:: Fair Motor Activity:: Appropriate Appearance:: Casual Speech:: Appropriate Mood:: Anxious Affect:: Constricted Thoughts:: Linear, Logical and No evidence of hallucinations/delusions noted Staff Interventions:: thought challenging, CBT techniques, strengths perspective, goal setting and taught coping skills Client Response:: Client reported last night he didn't get very much sleep because his bunk mate in the [facility] is constantly moving around all night which shakes their bed. Client stated he does feel frustrated at times with the senior care because there is a lot of noise at night with people moving around which is negatively impacting his sleep. Client reported he does feel more on edge today because of having several rough nights of sleep. Client and therapist discussed options to help with his sleep at night. Client stated he plans to talk with the head of the senior care to see if there is a way to get a single bed once one becomes available. Client reported besides having struggles with sleep he does feel like his mood is doing better compared to several weeks ago. Client stated he is continuing to focus on the positives and not ruminate on what he doesn't have. Client stated he reminds himself that he could be sleeping in his cold car at night and is instead in a warm bed. Client reported his positive perspective is making significant changes in his mood and daily functioning. Client stated he has been able to manage meth cravings and is continuing to work on decreasing his daily marijuana use. Client reported he wants to continue to focus on challenging his negative thoughts and focus on what opportunities he has to help challenge his perspective. Risks/Concerns:: Denies suicidal ideation, plan, or intention to date. future oriented. Progress Toward Goals/Plan:: Progress noted with client continuing to report challenging his negative thoughts to provide a different perspective. client stated focusing on the positives has been having a noticeable positive change in his mood each day. Client stated he used to have significant suicidal thoughts and lately hasn't had thoughts of wanting to . Client reported coming into therapy sober has been so helpful because he is able to feel his emotions and fully work on the things that have been holding him back in life. client reported he wants to work on further decreasing his marijuana use and maintain sobriety from meth. Client does report difficulty with sleep due to challenges living in a senior care and having lots of movement from the other people in the room. Client plans to speak with the breakfast supervisor of the senior care to discuss any other bed options. Plan is for client to continue IOP to continue challenging negative thoughts, practice healthy coping skills, and prevent decompensation. Time Stopped:: 09:45
--- NOTE | 2025-01-17 10:10 | BH.SGPN.GN ---
Behaviors/Verbalizations/Mental Status: [] Eye contact is good. Motor activity is appropriate. Appearance is casual. Speech is Appropriate. Mood is anxious. Affect is congruent. Thoughts are linear and logical. No evidence of psychosis. Client Response/Progress/Benefit: [] Pt receptive to session AEB listening attentively to others and taking notes. Pt attentive and contributed throughout psychoeducation on the cognitive triangle and maintenance cycles. Pt engaged during group discussion reviewing the impact of daily activities and behaviors in either reinforcing unhealthy maintenance cycles and depression or assisting in reducing symptoms (?down? vs ?up? activities). Pt participated during interactive discussion in which the group identified their own common up activities (walking, listening to music, car rides, being outside, movement, creative projects, organizing, showering, etc) and down activities (isolating, substance use, sleeping to escapade, and engaging in compulsions). Appeared to benefit from increased awareness of current behaviors and impact these have on mental health. Will continue IOP to prevent decompensation, increase healthy coping, and improve functioning. Narrative Note: []
--- NOTE | 2025-01-17 11:10 | BH.SGPN.GN ---
Behaviors/Verbalizations/Mental Status: []Pt alert and oriented, casually dressed and groomed. Eye contact fair. Motor activity appropriate. Speech within normal limits. Affect congruent, mood dysthymic. Thoughts linear, logical, no signs of hallucinations or delusions. Client Response/Progress/Benefit: [] Pt responded well to session, attentive and engaged in group discussions and activity. Actively engaged in continued discussion about up activities and down activities. Active participant as group discussed values and the benefits that knowing one's values can have on one's mental health. Client completed provided worksheet in which they identified most important personal values and wrote down one opposite action activity can engage in to be more congruent with his value. Benefited from increased awareness of their up activities and how incorporating their values into behavioral activation goals can positively impact mental health. Will continue in IOP to continue challenging negative thoughts, improve healthy coping skills, and prevent decompensation.
--- NOTE | 2025-01-18 09:00 | BH.SGPN.GN ---
Behaviors/Verbalizations/Mental Status: [] Pt alert and oriented, Casually dressed and groomed. Eye contact good. Motor activity appropriate. Speech within normal limits. Affect congruent, mood anxious. Thoughts linear, logical, no signs of hallucinations or delusions. Reviewed pt?s symptom tracker, 0/5 with 5 being severe for risk for suicidal ideation, indicates a 0/5 for plan, and intent to kill self. Pt does not appear to be imminent risk to harm self.01/18/25. Client Response/Progress/Benefit: []Pt was an active participant in group discussions. Attentive. Per patients daily symptom tracker, pt indicates a 2/5 for depression and a 2/5 for anxiety, with 5 being severe. Pt's mental health win was finishing a tax preparation course, and getting a 100%. 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 Pt's reported stressor is currently living at the [facility], which he states is too full of people, making him irritated. This is reflected on his symptom tracker where he scored irritability as a 4/5 with five being severe. Pt reports that despite this stressor, he is feeling mostly balanced for his mood. Pt was supportive and attentive to others in the group. Pt seemed to benefit from support from peers. Will continue IOP tx to promote healthy coping mechanisms, reduce negative thinking patterns, and prevent decompensation.
--- NOTE | 2025-01-18 10:10 | BH.SGPN.GN ---
Behaviors/Verbalizations/Mental Status: [] Eye contact is fair to good. Motor activity is appropriate. Appearance is casual. Speech is soft, limited input. Mood is euthymic. Affect is congruent. Thoughts are linear and logical. No evidence of psychosis. Client Response/Progress/Benefit: [] Client was an active participant in group discussion and experiential activity. Attentive during psychoeducation on resilience. Participated in interactive discussion with peers on the definition of resilience and where it comes from. Group identified that resiliency can be impacted by; past experiences, personality, and current mental health state. Client gave example of at they were resilient with having extreme trauma at a young age and still trying to work though things still and continue to show up. Group also worked together to identify the benefits of being resilient and how it is related to mental health. Able to relate experiential activity of group juggle to topics of resilience. Worked well with peers in small group in which they identified factors that contribute to resilience. Benefited from increased awareness of resilience and the factors that contribute to building resilience. Will continue in IOP to prevent decompensation and further promote mood stability. Narrative Note: []
--- NOTE | 2025-01-18 11:10 | BH.SGPN.GN ---
Behaviors/Verbalizations/Mental Status: [] Client alert and oriented, casually dressed and groomed. Eye contact fair. Motor activity appropriate. Speech within normal limits. Affect congruent, mood euthymic . Thoughts linear, logical, no signs of hallucinations or delusions Client Response/Progress/Benefit: [] Client responded well to session AEB completing the resilience worksheet provided. Client participated in the discussion and worked cooperatively with group to identify strategies to enhance each of the components discussed. Client reports belief they already use resilience trait of ?self awareness.? Stating that they have a better handle on knowing their triggers. Client stated they would like to continue to develop resilience trait of ?making connections.? Client stated they have been isolating more lately and wants to reduce that. Client seemed to benefit from discussing strategies for improving personal resilience and identifying resilience traits Client already possesses. Will continue IOP tx to promote mood stability, reduce negative thinking patterns, and increase distress tolerance skills. Narrative Note: []
--- NOTE | 2025-01-23 09:00 | BH.SGPN.GN ---
Behaviors/Verbalizations/Mental Status: [] Pt alert and oriented, Casually dressed and groomed. Eye contact fair. Motor activity appropriate. Speech within normal limits. Affect congruent, mood calm. Thoughts linear, logical, no signs of hallucinations or delusions. Reviewed pt?s symptom tracker today, denies suicidal ideation, plan, and intent.01/23/25. Client Response/Progress/Benefit: []Pt was an active participant in group discussions. Attentive. Per patients daily symptom tracker, pt indicates a 2/5 for depression and a 1/5 for anxiety, with 5 being severe. 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 Pt reported enjoying this job in the past, and is receiving a pay raise due to the higher position. Pt stated for his second mental health win that he is proud of himself for pushing through all of the difficulties that he has faced, after his therapist told him that he had scored higher on the NIKOLAS questionnaire than any of her other patients. Pt's stressor was trying to stay sober. Pt reported catching multiple people in the long term using meth, which he stated is very triggering. Despite this, Pt states that he has been sober for two months. Pt was supportive and attentive to others in the group. Pt seemed to benefit from support from peers. Will continue IOP tx to promote healthy coping mechanisms, reduce negative thinking patterns, and prevent decompensation.
--- NOTE | 2025-01-23 10:10 | BH.SGPN.GN ---
Behaviors/Verbalizations/Mental Status: []Pt alert and oriented, casually dressed and groomed. Eye contact good. Motor activity appropriate. Speech within normal limits. Affect congruent, mood anxious. Thoughts linear, logical, no signs of hallucinations or delusions. Client Response/Progress/Benefit: [] Pt took notes and contributed to group discussions. Attentive during psychoeducation on growth mindset. Interactive group discussion on fixed mindset in which group verbalized their current fixed mindsets and how they affect their mental health. Pt shared common fixed mindset thoughts they have. Pt shared a personal fixed thought I?m broken and can?t get better.? Pt able to connect negative impact fixed thoughts have on functioning. Pt benefited from increased awareness of growth mindset and fixed thoughts and how fixed thoughts impact their mental health. Will continue IOP tx to promote use of healthy coping skills, challenge negative thoughts, and prevent decompensation. Narrative Note: []
--- NOTE | 2025-01-23 11:10 | BH.SGPN.GN ---
Behaviors/Verbalizations/Mental Status: []Pt alert and oriented, casually dressed and groomed. Eye contact good. Motor activity appropriate. Speech within normal limits. Affect congruent, mood content. Thoughts linear, logical, no signs of hallucinations or delusions. Client Response/Progress/Benefit: [] Pt was an active participant during activity and discussion. Pt did well to remain attentive and participate as group worked on identifying characteristics and benefits of adopting a growth mindset. Worked with fellow participants in reframing the example fixed thoughts into growth mindset thoughts. Pt worked on changing own fixed thought. Pt?s reframed thought was ?I can change, it will just take time.? Pt attentive during discussion about different strategies that can help with fostering a growth mindset. Pt appeared to benefit from challenging own thoughts and engaging in the activity. Pt will continue IOP tx to prevent decompensation, improve mood stability, and increase healthy coping skills. Narrative Note: []
--- NOTE | 2025-01-25 09:00 | BH.SGPN.GN ---
Behaviors/Verbalizations/Mental Status: [] Pt alert and oriented, Casually dressed and groomed. Eye contact good. Motor activity appropriate. Speech within normal limits. Affect congruent, mood calm. Thoughts linear, logical, no signs of hallucinations or delusions. Reviewed pt?s symptom tracker today, denies suicidal ideation, plan, and intent.01/25/25. Client Response/Progress/Benefit: []Pt was an active participant in group discussions. Attentive. Per patients daily symptom tracker, pt indicates a 1/5 for depression and a 0/5 for anxiety, with 5 being severe. Pt's mental health positive was learning to better deal with some of the difficult people in the residential he is staying at. He previously reported catching two people doing meth in the bathrooms, which was triggering for him. His other positive was some friends coming in to town for an annual meet up. Pt's current stressor is the government shut down, as it affects him getting paid for his new job position. Pt was supportive and attentive to others in the group. Pt seemed to benefit from support from peers. Will continue IOP tx to promote healthy coping mechanisms, improve self confidence, and prevent decompensation.
--- NOTE | 2025-01-25 10:10 | BH.SGPN.GN ---
Behaviors/Verbalizations/Mental Status: []Pt alert and oriented, casually dressed and groomed. Eye contact good. Motor activity appropriate. Speech within normal limits. Affect congruent, mood anxious. Thoughts linear, logical, no signs of hallucinations or delusions. Client Response/Progress/Benefit: []Pt responded well to session AEB pt listening attentively to others and providing input throughout group discussions. Pt worked with group to identify potential barriers to effective problem-solving. Pt attentive and engaged during psychoeducation about the different problem-solving styles (impulsive-careless, avoidant, and problem solving). Pt shared current problem-solving style they utilize is avoidant style.? Pt seemed to benefit from increased awareness of current problem-solving style and the impact this style has on their mental health. Will continue IOP tx to prevent decompensation, promote healthy coping skills, and continue challenging distorted thoughts. Narrative Note: []
--- NOTE | 2025-01-25 11:00 | BH.SGPN.GN ---
Behaviors/Verbalizations/Mental Status: []Client alert and oriented, casually dressed and groomed. Eye contact good. Motor activity appropriate. Speech within normal limits. Affect congruent, mood euthymic. Thoughts linear, logical, no signs of hallucinations or delusions. Client Response/Progress/Benefit: [] Pt engaged in session AEB contributing to discussion and engaging in small group. Attentive during discussion on strategies for more effectively solving problems in personal life. Pt participated in small group for activity and did well practicing problem-solving skills with the group in the moment. Pt identified a current problem they are struggling to solve as: finding appropriate housing. Reports next step in resolving this as: brainstorm the various option and weigh pros/cons of each. Appeared to benefit from gaining strategies to help Pt better manage daily problems. Will continue IOP tx improve distress tolerance, challenge distortions, and prevent decompensation. Narrative Note: []
--- NOTE | 2025-01-26 09:35 | BH.MDN ---
Multi-Disciplinary Note Note 30-min Individual: Time Started:: 09:10 Date: 01/26/25 Purpose of session/treatment goals addressed:: Purpose of session was to address goals 1 and 2 from MTP. Eye Contact:: Fair Motor Activity:: Appropriate Appearance:: Casual Speech:: Appropriate Mood:: Anxious and Other (sad) Affect:: Congruent Thoughts:: Linear, Logical and No evidence of hallucinations/delusions noted Staff Interventions:: thought challenging, CBT techniques, rapport building and strengths perspective Client Response:: Client reported he is feeling somewhat depressed, but hopeful. Client shared he found out that one of his longtime friends in a car accident recently. Client stated he is feeling extremely shocked and has still not fully processed this loss. client stated he was supposed to see this friend soon and still can't believe this friend is gone. Therapist normalized grief process. Client reported although he is sad about this loss he feels hopeful because it's the first time in 40 years after a significant stressor in which he didn't have the craving to use drugs or kill himself. Client stated for majority of his life when faced with bad news he would either have the thought of wanting to or use drugs to cope. Client reported besides the grief he's dealing with, overall he has been doing better. Client stated he has been working on challenging his negative and distorted thought patterns. Client reported he has noticed significant improvement in his mood since challenging his perspective. Client reported he wants to continue working on challenging negative thoughts because that has been working for him. Risks/Concerns:: Client denies suicidal ideation, plan, or intention to date. future oriented. Progress Toward Goals/Plan:: Progress noted with client reporting not having the urge to harm himself or want to use drugs after finding out his friend in a car accident. Client shared in the past 40 years he has struggled with handling any sort of bad news in a healthy way. Client stated he has found his mood has improved drastically since he has been trying to see his life and stressful situations in a different perspective. Client stated he is feeling somewhat depressed due to the loss of his friend, however noted he is managing his grief in a healthier way by talking about. Client continues to maintain sobriety from meth. Client stated is working on cutting his marijuana use down. Client stated he has found coming to therapy every time sober to be positively impactful on his treatment. Noted this is the first time he's ever done therapy without smoking marijuana before going. Plan is for client to promote use of healthy coping, continue challenging distorted thoughts, and prevent decompensation. Time Stopped:: 09:33
--- NOTE | 2025-01-26 10:10 | BH.SGPN.GN ---
Behaviors/Verbalizations/Mental Status: [] Pt alert and oriented, casually dressed and groomed. Eye contact good. Motor activity appropriate. Speech within normal limits. Mood: euthymic. Affect: congruent. Thoughts linear, logical, no signs of hallucinations or delusions. Client Response/Progress/Benefit: [] Pt participated when prompted during group discussions. Attentive during psychoeducation on self-sabotage and its impact on mental health. Attentive as peers worked to define self-sabotage and identify reasons individuals perform self-sabotage behaviors (easy route at the time, feel as those we don't deserve any better, FOF, comfortable, etc). Attentive as peers identified the forms of self-sabotage that impact their mental health. Attentive during psychoeducation on types of self-sabotage; Procrastination, perfectionism, self-medication, poor communication,and chronic cancelling. Seemed to benefit from gaining awareness about the self-sabotage. Pt to continue IOP tx to promote use of healthy coping skills, continue challenging negative perspective, and prevent decompensation.
--- NOTE | 2025-01-26 11:05 | BH.SGPN.GN ---
Behaviors/Verbalizations/Mental Status: [] Eye contact is good. Motor activity is appropriate. Appearance is disheveled. Speech is Appropriate. Mood is dysthymic. Affect is congruent. Thoughts are linear and logical. No evidence of psychosis. Client Response/Progress/Benefit: [] Pt responded well to session, engaged and contributing. Pt discussed with group things that contribute to mental wellness life. With peers, pt discussed things that would sabotage one's mental health wellness. Pt identified things pt personally does to sabotage as procrastination, isolation, making assumptions, impulsive/destructive acts, and over-thinking. Pt attentive during psychoeducation on ways to reduce self-sabotage and pt selected intentional reflection, actually trying, and challenging negative thoughts as skills that could help pt reduce self-sabotaging behaviors. Pt appeared to benefit from learning skills and gaining awareness of self-sabotaging behaviors. Pt will continue IOP tx to maintain safety, prevent decompensation, and to increase healthy coping. Narrative Note: []
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
--- NOTE | 2025-02-06 19:29 | BH.MDN_ITS ---
Multi-Disciplinary Note Note 45-min Individual: Date: 02/06/25
--- NOTE | 2025-02-06 19:29 | BH.MDN ---
Multi-Disciplinary Note Note 45-min Individual: Date: 02/06/25
== END 2025-01-27 23:59 ==
LOC: BHIOP 08:00
PROVIDERS: Referring Provider Student in an Organized Health Care Education/Training Program; Visit Provider Student in an Organized Health Care Education/Training Program
DX: F33.2 Major depressive disorder, recurrent severe without psychotic features (principal); F43.10 Post-traumatic stress disorder, unspecified; F15.90 Other stimulant use, unspecified, uncomplicated
CPT/HCPCS: H2012; H2020; S9480; 90832; 90834

== ENCOUNTER 2025-01-30 08:34 | Outpatient (RCR) | payer MEDICAID, SELFPAY ==
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
--- NOTE | 2025-01-30 10:05 | BH.SGPN.GN ---
Behaviors/Verbalizations/Mental Status: [] Eye contact is good. Motor activity is appropriate. Appearance is disheveled. Speech is Appropriate. Mood is euthymic. Affect is full. Thoughts are linear and logical. No evidence of psychosis. Client Response/Progress/Benefit: [] Pt participated during the group discussion, providing input and remaining attentive during psychoeducation. Participated in experiential activity. Pt contributed during interactive discussion on the consequences of unhealthy expression of emotions. Worked with group to identify several consequences which included hurting relationships and isolating oneself. Contributing during interactive discussion on common potholes to effectively communicating such as; avoidance, isolation, bottling up emotions, yelling, and several more. Pt was able to relate and make connections between the experiential activity and the overall topic, managing emotions through activity. Benefited from increased awareness of how stress and emotions can impact one's ability to communicate. Will continue in IOP to prevent decompensation, improve daily functioning, and increase the use of healthy coping skills.
--- NOTE | 2025-01-30 11:10 | BH.SGPN.GN ---
Behaviors/Verbalizations/Mental Status: []Client alert and oriented, casually dressed and groomed. Eye contact good. Motor activity appropriate. Speech within normal limits. Affect congruent, mood content. Thoughts linear, logical, no signs of hallucinations or delusions. Client Response/Progress/Benefit: []Client engaged in session AEB client listening attentively to peers and providing input. Attentive during psychoeducation on 4 zones of regulation. Pt able to identify feelings and behaviors for each zone. Pt identified coping skills one can use to support self in each zone. Pt stated belief that pt is in the green zone today. Pt reports plan to spend time with healthy supports today. Benefited from increased education on zones of regulation or stages of alertness for emotions and healthy coping skills to use for each zone. Pt will continue IOP tx to increase self-awareness, improve application of skills, and prevent decompensation. Narrative Note: []
--- NOTE | 2025-01-31 10:05 | BH.SGPN.GN ---
Behaviors/Verbalizations/Mental Status: [] Eye contact is good. Motor activity is appropriate. Appearance is disheveled. Speech is Appropriate. Mood is dysthymic. Affect is congruent. Thoughts are linear and logical. No evidence of psychosis Client Response/Progress/Benefit: [] Pt was an active participant during group discussions and group activities. This portion of group was very psychoeducation heavy and pt was attentive during psychoeducation. Engaged during activity in which they identified which type of foods (i.e. carbs, sugar, salt, fast food, caffeine, etc) they seek out when sad, tired, angry, stressed, anxious, etc. Pt was able to identify the impact that certain foods have on their mental health through group example which was beneficial. Benefited from increased awareness of the connection between nutrition and mental health. Will continue in IOP to prevent decompensation, increase healthy coping, and improve functioning to return to work. Narrative Note: []
--- NOTE | 2025-01-31 11:10 | BH.SGPN.GN ---
Behaviors/Verbalizations/Mental Status: []Pt alert and oriented, disheveled appearance. Eye contact good. Motor activity appropriate. Speech within normal limits. Affect congruent, mood euthymic. Thoughts linear, logical, no signs of hallucinations or delusions. Client Response/Progress/Benefit: [] Pt was an active participant during group discussions and group activities. This portion of group was very psychoeducation heavy and pt was attentive during psychoeducation. Engaged during activity in which they identified their own maintenance cycles with food and how it impacts their mental health symptoms. Pt and peers identified barriers to breaking these cycles as well as ways to combat barriers. Pt stated he wants to work on reducing sugar because he sees how it negatively impacts his depression. Benefited from increased awareness of the connection between nutrition and mental health and from identifying strategies. Will continue in IOP to promote mood stability, increase distress tolerance, and improve daily functioning. Narrative Note: []
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
--- NOTE | 2025-02-01 10:10 | BH.SGPN.GN ---
Behaviors/Verbalizations/Mental Status: [] Pt alert and oriented, casually dressed and groomed. Eye contact good. Motor activity appropriate. Speech within normal limits. Affect congruent, mood euthymic. Thoughts linear, logical, no signs of hallucinations or delusions. Client Response/Progress/Benefit: [] Pt was an active participant in group discussions and activity. Attentive during psychoeducation. Pt along with peers were able to identify several negatives on the picture given to the group. Pt and peers also identified positives in the picture and made the connect that finding positives is much more difficult. Interactive discussion on the definition of perspective, how perspective is formed, and why perspective is important in treatment. Pt along with peers also identified that perspective can either motivate and encourage treatment or be a barrier to receiving help. Pt shared childhood impacted his thought processes in how he views situations. Will continue in IOP to promote gains, further decrease anxiety, and increase self-confidence. Narrative Note: []
--- NOTE | 2025-02-01 11:10 | BH.SGPN.GN ---
Behaviors/Verbalizations/Mental Status: [] Pt alert and oriented, casually dressed and groomed. Eye contact good. Motor activity appropriate. Speech within normal limits. Affect congruent, mood euthymic. Thoughts linear, logical, no signs of hallucinations or delusions. Client Response/Progress/Benefit: [] Pt was attentive and contributed in small and larger group discussion. Pt completed strengths exploration worksheet and identified personal strengths to include:empathetic. Pt able to acknowledge how these strengths are helping him and can continue to help pt in his mental health journey.. Shared wanting to focus on fostering personal strengths by giving self daily affirmation. Benefited from identifying personal strengths and strategies for enhancing use of identified strengths. Pt to continue IOP tx to promote use of healthy coping skills, increase self-confidence, and reduce negative thinking patterns. Narrative Note: []
--- NOTE | 2025-02-03 14:00 | BH.COMM ---
Communication Note Communication with Client Communication Note: Client has elected to not do follow up appointments with IOP psychiatrist due to client's current work schedule conflicting with the day IOP psychiatrist is available. Client noted he is already established with a medication provider and has no current issues with his medications. Discussed case with IOP psychiatrist Dr. Neil. Dr. Neil is agreeable with plan and recommends client continue IOP services with a diagnoses of Major depression and Stimulant use disorder, in acute remission. Diagnosis Code(s):: F33.2
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
--- NOTE | 2025-02-06 10:10 | BH.SGPN.GN ---
Behaviors/Verbalizations/Mental Status: []Pt alert and oriented, casually dressed and groomed. Eye contact good. Motor activity appropriate. Speech within normal limits. Affect congruent, mood content and anxious. Thoughts linear, logical, no signs of hallucinations or delusions. Client Response/Progress/Benefit: []Pt participated during small group discussions. Attentive during psychoeducation about defense mechanisms. Showed engagement during small group discussions and helped group identify which defense mechanisms were maladaptive, adaptive, or ?somewhere in the rivas.? Pt worked with small group on identifying how each defense mechanism can impact mental health and gave examples. Pt stated he learned that defense mechanisms can stem from past trauma.?Pt reported benefit from normalizing why people use maladaptive defense mechanisms. Seemed to benefit from gaining awareness about the different defense mechanisms. Pt to continue IOP tx to prevent decompensation, improve daily functioning, and gain healthy coping skills. Narrative Note: []
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
--- NOTE | 2025-02-07 09:00 | BH.SGPN.GN ---
Behaviors/Verbalizations/Mental Status: [] Eye contact is good. Motor activity is appropriate. Appearance is disheveled. Speech is Appropriate. Mood is euthymic. Affect is full. Thoughts are linear and logical. No evidence of psychosis. Reviewed daily check in sheet and no reports of suicidal ideations Client Response/Progress/Benefit: [] Pt participated at times during the group discussions. Attentive. Daily symptom tracker notes 04/03 for depression and agitation. Pt shared that he's really in a good mood today. He reports fifty days sober from meth. Hopeful about the future. Progress noted. Benefited from group support, encouragement, and feedback. Will continue in IOP to maintain gains, increase healthy coping, and improve functioning. Narrative Note: []
--- NOTE | 2025-02-07 10:10 | BH.SGPN.GN ---
Behaviors/Verbalizations/Mental Status: []Pt alert and oriented, casually dressed and groomed. Eye contact good. Motor activity appropriate. Speech within normal limits. Affect congruent, mood euthymic. Thoughts linear, logical, no signs of hallucinations or delusions. Client Response/Progress/Benefit: [] Pt responded well to session AEB contributing to discussion, taking notes, and listening attentively to others. Group discussed the benefits of managed anger and anger as a secondary emotion. Pt participated in discussion on anger triggers and responses. Group reported outward personal signs of anger as lashing out verbally, crying, and being impulsive. Group Identified examples of anger cycles and as well the emotions that contribute to anger. Appeared to benefit from increased knowledge of the underlying emotions that impact anger and increased self-awareness of the internal and external consequences of anger. Pt will continue IOP tx to promote use of healthy coping skills, improve daily functioning, and further reduce symptoms. Narrative Note: []
--- NOTE | 2025-02-07 11:10 | BH.SGPN.GN ---
Behaviors/Verbalizations/Mental Status: [] client alert and oriented, casually dressed and groomed. Eye contact good. Motor activity appropriate. Speech within normal limits. Affect congruent, mood euthymic. Thoughts linear, logical, no signs of hallucinations or delusions. Client Response/Progress/Benefit: [] Client was an engaged participant throughout group AEB client providing input throughout discussion. Client contributed to the continued discussion of how people express anger as well as the underlying emotions of anger. Client participated in group activity that highlighted strategies to cope with anger. Group brainstormed healthy coping skills to help prevent anger and cope with it in the moment which included: mindfulness, deep breathing, journaling, going outside, and music. Client stated would like to work on walking away when angry but coming back to resolve the issue. Client appeared to benefit from brainstorming with the group potential strategies to manage anger in healthy ways. Recommended continued IOP to challenge negative thoughts, promote healthy coping skills, and prevent decompensation.
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
--- NOTE | 2025-02-08 10:10 | BH.SGPN.GN ---
Behaviors/Verbalizations/Mental Status: []Pt alert and oriented, neatly dressed and groomed. Eye contact good. Motor activity appropriate. Speech within normal limits. Affect congruent, mood euthymic. Thoughts linear, logical, no signs of hallucinations or delusions. Client Response/Progress/Benefit: [] Pt was an active participant AEB taking notes and engaging in group activity. Connected with the topic of pitfalls and listened to group discussion on barriers that prevent from choosing a healthier path to mental wellness. Group worked together to identify examples of personal pitfalls. These examples included; having unrealistic expectations, not trusting, not asking for help, and shutting down. Pt benefited from group as pt learned to better identify potential barriers to improving mental health symptoms. Pt will continue IOP tx to promote use of healthy coping skills, continue challenging negative perspective, and prevent decompensation.
--- NOTE | 2025-02-08 10:10 | BH.SGPN.GN ---
Behaviors/Verbalizations/Mental Status: []Pt alert and oriented. Casually dressed and groomed, eye contact good. Motor activity appropriate. Speech within normal limits. Affect congruent. Mood calm. Thoughts linear, logical, no signs of hallucinations or delusions. Client Response/Progress/Benefit: [] Pt was an active participant, taking notes and engaging in group discussion and activity. Connected with the topic of pitfalls and participated in group discussion about barriers that prevent from choosing a healthier path to mental wellness. Pt participated in discussion on pitfalls, what they are, and ways that we stay stuck in them. Group worked together to identify examples of internal and external pitfalls, including depression, anxiety, and suicidal thoughts. Pt benefited from group and psychoeducation on pitfalls as pt learned to better identity potential barriers to improving mental health symptoms. Pt was an active participant in activity meant to demonstrate pitfalls and how to cope with them. Pt will continue IOP tx decrease negative thinking patterns, improve daily functioning, and prevent decompensation.
--- NOTE | 2025-02-08 11:10 | BH.SGPN.GN ---
Behaviors/Verbalizations/Mental Status: []Client alert and oriented, casually dressed and groomed. Eye contact good. Motor activity appropriate. Speech within normal limits. Affect congruent, mood content. Thoughts linear, logical, no signs of hallucinations or delusions. Client Response/Progress/Benefit: [] Pt receptive of session, engaged throughout AEB Pt actively listening and contributing to discussion as well as taking notes.? Pt participated in the experiential activity and did well to communicate ideas with peers and manage emotions. Pt attentive as group processed how the emotions and perspective of the group impacted the activity. Pt was highly encouraging during the activity which helped peers. Group worked together to identify different coping skills to help manage pitfalls. Pt identified pitfalls they struggle with as substance use, isolation, and chronic SI. Pt plans to work on their pitfall by ?opposite action.? Benefited from identifying personal pitfalls and strategies to overcome these pitfalls. Pt will continue IOP tx to increase distress tolerance, gain self-confidence, and gain healthy support. Narrative Note: []
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
--- NOTE | 2025-02-13 10:10 | BH.SGPN.GN ---
Behaviors/Verbalizations/Mental Status: [] Eye contact is good. Motor activity is appropriate. Appearance is casual. Speech is Appropriate. Mood is content. Affect is congruent. Thoughts are linear and logical. No evidence of psychosis. Client Response/Progress/Benefit: [] Pt engaged participant AEB listening to others, engaging in activity, and providing feedback throughout. Attentive during psychoeducation and provided insight into obstacles that impede mental wellness. Pt shared with group current mental health reality and desired mental health reality. Identified barriers to desired reality which included difficulties with maladaptive coping, negative self-talk, and self-doubt. Benefited from taking look at current mental health state and obstacles for progress. Pt to continue in IOP tx to prevent decompensation, stabilize mood, and improve functioning. Narrative Note: []
--- NOTE | 2025-02-13 11:10 | BH.SGPN.GN ---
Behaviors/Verbalizations/Mental Status: [] Eye contact is good. Motor activity is appropriate. Appearance is casual. Speech is Appropriate. Mood is anxious. Affect is congruent. Thoughts are linear and logical. No evidence of psychosis. Client Response/Progress/Benefit: [] Pt was an engaged participant in group discussion and activity. Worked with group to identify strategies to help overcome barriers and obstacles to desired reality. Group developed strategies for the common barriers. Identified personal barriers to desired reality which included Self-doubt, past trauma, all or guilt, and avoidance. Was able to identify a skill to implement immediately to address inappropriate guilt. Pt seemed to benefit from increased repertoire of healthy coping skills/strategies to overcome common barriers to moving forward. Will continue in IOP to prevent decompensation, stabilize emotions, increase healthy coping, and improve functioning. Narrative Note: []
--- NOTE | 2025-02-14 09:00 | BH.SGPN.GN ---
Behaviors/Verbalizations/Mental Status: [] Eye contact is good. Motor activity is appropriate. Appearance is casual. Speech is Appropriate. Mood is depressed. Affect is congruent. Thoughts are linear and logical. No evidence of psychosis. Reviewed daily check in sheet and no reports of suicidal ideations Client Response/Progress/Benefit: [] Pt was an active participant in group discussions. Pt shared a that he received ?devastating news? las night that his cousin completed suicide. Shared the emotional impact this had as well as confusion. He spoke with his cousin often and never had indication that he was struggling with depression. States that had significant urges to ?use meth? after hearing the news to numb his emotions. Proud of himself for not relapsing on meth ? I have to learn how to manage these things without drugs?. Progress noted. Benefited from group support, encouragement,and feedback. Will continue in IOP to prevent decompensation, increase healthy coping, and improve functioning. Narrative Note: []
--- NOTE | 2025-02-14 10:15 | BH.MDN ---
Multi-Disciplinary Note Note 30-min Individual: Time Started:: 10:15 Date: 02/14/25 Purpose of session/treatment goals addressed:: Pt disclosed to staff and peers this AM that he learned that his cousin completed suicide yesterday. Tearful. Spoke with cousin every couple weeks. Met with patient to provide grief counseling and link to local resources for family impacted by suicide. Eye Contact:: Good Motor Activity:: Appropriate Appearance:: Disheveled Speech:: Appropriate Mood:: Depressed Affect:: Congruent Thoughts:: Linear, Logical and No evidence of hallucinations/delusions noted Staff Interventions:: other (support, grief counseling. ) Client Response:: Patient reports learning last evening around 7:00 PM that his cousin by suicide. The cousin resided in [place], and the patient received the news from his aunt. Patient describes having a close relationship with his cousin, typically speaking by phone approximately twice per month. He expressed experiencing a range of intense emotions and intrusive thoughts, noting significant difficulty with closure as there were no apparent indicators of depression or suicidal ideation prior to the event. Patient verbalized feelings of confusion and distress regarding the absence of clear precipitating factors. Upon receiving the news, the patient?s initial impulse was to use methamphetamine as a means of emotional numbing. However, he successfully implemented coping strategies and distress tolerance skills in the moment, which he identified as effective in preventing substance use. Patient disclosed that he did smoke cannabis, which he perceived as a setback given his recent two-day period of sobriety. He also reported experiencing strong urges to isolate and cancel group therapy today but was encouraged by his to attend. Patient stated, ?I?m glad I did because nothing good would have come from isolating today. Risks/Concerns:: Denies suicidal ideations. I wouldn't do that to my family Progress Toward Goals/Plan:: Patient responded positively to today?s counseling session, expressing appreciation for the therapist?s time and support in processing grief. He demonstrated insight into his progress, noting that his response to distress has improved significantly since initiating Intensive Outpatient Program (IOP) treatment. Patient reflected that two months ago, he would have coped by using methamphetamine to escape emotional pain, which historically led to suicidal ideation. He reported a shift in perception, stating that he no longer believes drugs are necessary to manage distress. Patient successfully utilized coping strategies and relapse prevention skills in the moment, expressing pride in his ability to manage urges without resorting to methamphetamine use. He was provided with information on local grief resources and verbalized intent to attend a local PALS (People Affected by Loved One Suicide) support group. Time Stopped:: 10:45
--- NOTE | 2025-02-14 11:10 | BH.SGPN.GN ---
Behaviors/Verbalizations/Mental Status: [] Client alert and oriented, neatly dressed and groomed. Eye contact fair to good. Motor activity appropriate. Speech within normal limits. Affect congruent, mood euthymic. Thoughts linear, logical, no signs of hallucinations or delusions. Client Response/Progress/Benefit: [] Client responded well to session AEB taking notes and providing input and examples throughout. Group discussed the different categories of coping skills which included distraction, emotional release, grounding, self-love, and access to greater self, and thought challenging. Client created a coping skill menu identifying various skills to try in each category. Client?s coping skill menu included: music, TIPP, eft tapping, self care, pros/cons list, and reflection. Appeared to benefit from increasing repertoire of healthy coping skills. Client reports feeling less depressed, but client has yet to see consistent mood stability for over two weeks. Client will continue IOP tx to improve daily functioning, increase self care, and increase application of healthy coping skills. Narrative Note: []
--- NOTE | 2025-02-15 09:00 | BH.SGPN.GN ---
Behaviors/Verbalizations/Mental Status: [] Pt alert and oriented, Casually dressed and groomed. Eye contact good. Motor activity appropriate. Speech within normal limits. Affect congruent, mood calm. Thoughts linear, logical, no signs of hallucinations or delusions. Reviewed pt?s symptom tracker today, denies suicidal ideation, plan, and intent.02/15/25 Client Response/Progress/Benefit: []Pt was an active participant in group discussions. Attentive. Per patients daily symptom tracker, pt indicates a 3/5 for depression and a 2/5 for anxiety, with 5 being severe. Pt's reported mental health positive was not getting high the previous day despite getting some bad news. His other mental health positive was getting through a meth craving without giving in to it. Pt reported that his helped to support him, and encouraged him to stay sober. Pt's stressor was the recent suicide of his cousin. Pt stated that he is going through a lot of grief, and is trying to make peace with he fact that he may never know why his cousin by suicide. Despite this major stressor, pt has been able to stay sober. Pt was supportive and attentive to others in the group. Pt seemed to benefit from support from peers. Will continue IOP tx to promote healthy coping mechanisms, decrease negative thinking patterns, and prevent decompensation.
--- NOTE | 2025-02-15 10:15 | BH.SGPN.GN ---
Behaviors/Verbalizations/Mental Status: [] Client alert and oriented, casually dressed and groomed. Eye contact good. Motor activity appropriate. Speech within normal limits. Affect congruent, mood euthymic. Thoughts linear, logical, no signs of hallucinations or delusions. Client Response/Progress/Benefit: [] Client responded well to session AEB taking notes throughout and listening attentively to others. Client was attentive throughout group activity identifying famous individuals and how they overcame failure to be successful. Client helped group identify how fear of failure can impact mental health and relationships. Group identified it leads to self-sabotage, not trying, avoidance, and isolation. Client participated in experiential activity, working with group members to problem solve. Appeared to benefit from increased knowledge of fear of failure. Will continue IOP tx to improve self-confidence, reduce distorted thinking patterns, and increased functioning. Narrative Note: []
--- NOTE | 2025-02-15 11:15 | BH.SGPN.GN ---
Behaviors/Verbalizations/Mental Status: [] Client alert and oriented, casually dressed and groomed. Eye contact good. Motor activity appropriate. Speech within normal limits. Affect congruent, mood euthymic. Thoughts linear, logical, no signs of hallucinations or delusions. Client Response/Progress/Benefit: [] Client responded well to session, engaged in the experiential activity and attentive throughout group processing. Client completed fear of failure worksheet and was able to identify thoughts and behaviors that reinforce personal fear of failure including comparison. Client participated in small group discussion regarding strategies to overcome fear of failure. Identified wanting to work on looking at the [facility]. Appeared to benefit from increased knowledge of strategies to combat fear of failure and gaining self-awareness. Client will continue IOP tx to promote gains in reduced depressive symptoms and to reduce anxiety and avoidance. Narrative Note: []
--- NOTE | 2025-02-20 09:00 | BH.SGPN.GN ---
Behaviors/Verbalizations/Mental Status: [] Client alert and oriented, casually dressed and groomed. Eye contact good. Motor activity appropriate. Speech within normal limits. Affect constricted, mood euthymic. Thoughts linear, logical, no signs of hallucinations or delusions. Reviewed client?s symptom tracker, no risk for suicidal ideation, plan, or intent as of 02/20/25 Client Response/Progress/Benefit: [] Client responded well to group by actively participating throughout group. Reported that their emotion today was hopeful.Client shared that they recently found out reason behind their cousin's suicide which felt it gave them a form of closure. Client reported increased stress from being around others all the time at the [facility] and wanted some peace with reporting spending a lot of time in their car to get that. Client shared it a win as coming into IOP today due to not feeling well over the weekend. Client seemed to benefit from feedback from group members with suggestions on how to gain peace with current living situation. They will continue IOP tx to increase coping skills, prevent decompensation, and increase overall functioning. Narrative Note: []
--- NOTE | 2025-02-20 10:10 | BH.SGPN.GN ---
Behaviors/Verbalizations/Mental Status: [] Pt alert and oriented, casual appearance, eye contact good. Motor activity appropriate. Speech within normal limits. Affect congruent. Mood euthymic. Thoughts linear, logical, no signs of hallucinations or delusions. Client Response/Progress/Benefit: [] Pt was an active participant in group discussions on defining conflict (internal/external) and possible benefits to conflict. Attentive during psychoeducation on conflict styles (avoidant, accommodating, competing, cooperative) and engaged during group discussion in which the group identified when it is beneficial to use conflict styles and pitfalls of each conflict style. Pt noted they connect most with avoidant and collaborating style of conflict. Pt was an able to connect the impact current style of conflict has on functioning. Benefited from increased awareness of the impact of conflict styles on mental health. Will continue in IOP to challenge distorted thoughts, improve healthy coping skills, and prevent decompensation.
--- NOTE | 2025-02-20 11:10 | BH.SGPN.GN ---
Behaviors/Verbalizations/Mental Status: []Client alert and oriented, disheveled dress, well groomed. Eye contact good. Motor activity appropriate. Speech within normal limits. Affect congruent, mood anxious. Thoughts linear, logical, no signs of hallucinations or delusions. Client Response/Progress/Benefit: [] Pt engaged in session AEB contributing to discussion and engaging in small group. Attentive during discussion on strategies for more effectively managing conflict in personal life. Pt noted current conflict resolution style uses the most is accommodating because doesn't want to cause any issues. Pt participated in small group for activity and did well practicing how to manage conflict scenarios. Pt given handout on fair fighting rules and how to identify common conflict barriers. Pt indicated what needs improvement in conflict for them- ?no stonewalling.? Appeared to benefit from gaining strategies to help pt better manage conflict. Will continue IOP tx to reinforce use of healthy coping skills, improve daily functioning, and increase self-confidence. Narrative Note: []
--- NOTE | 2025-02-21 09:05 | BH.SGPN.GN ---
Behaviors/Verbalizations/Mental Status: [] Eye contact is good. Motor activity is appropriate. Appearance is disheveled. Speech is Appropriate. Mood is euthymic. Affect is full. Thoughts are linear and logical. No evidence of psychosis. Reviewed daily check in sheet and no reports of suicidal ideations. Client Response/Progress/Benefit: [] Pt participated at times during the group discussion. Shared with the group that he is 4 days sober from cannabis. Elaborated on the benefits this has had on his mental health and thought clarity. Shared the many stressors that he has throughout the day as well as being around others at the [facility]term who spoke daily. He is doing well to utilize reframing, thought challenging, affirmations, and other healthy skills. Progress noted. Benefited from group support, encouragement, and feedback. Will continue in IOP to maintain safety, prevent decompensation, and increase healthy coping. Narrative Note: []
--- NOTE | 2025-02-21 10:15 | BH.SGPN.GN ---
Behaviors/Verbalizations/Mental Status: []Pt alert and oriented, casually dressed and groomed. Eye contact good. Motor activity appropriate. Speech within normal limits. Affect congruent, mood engaged and sad. Thoughts linear, logical, no signs of hallucinations or delusions. Client Response/Progress/Benefit: [] Pt engaged in session AEB client listening attentively to peers and providing input. Attentive and contributed to discussion as group worked on defining self-forgiveness and identifying mental health benefit. Identified benefits as: reduce guilt/shame, increase self-confidence, decrease negative self-talk, healthier relationships, ect. ?Worked in small groups to identify factors that can make self-forgiveness difficult. Pt identified a personal barrier to self-forgiveness including ?in the past I just used drugs to not feel anything.? Benefited from increased education on self-forgiveness, benefits, and what effects it. Pt will continue IOP tx to reinforce healthy coping skills, improve daily functioning, and establish aftercare. Narrative Note: []
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
--- NOTE | 2025-02-22 09:00 | BH.SGPN.GN ---
Behaviors/Verbalizations/Mental Status: [] Pt alert and oriented, casually dressed and groomed. Eye contact good. Motor activity appropriate. Speech within normal limits. Affect congruent, mood euthymic. Thoughts linear, logical, no signs of hallucinations or delusions. Reviewed pt?s symptom tracker, no risk for suicidal ideation, plan, or intent 02/22/25. Client Response/Progress/Benefit: [] Pt was an active participant in group discussions. Attentive. Able to identify mental health wins including ?I only got 4 hours of sleep last night, but I?m not cranky? and ?this is the longest I?ve ever been fully sober since I was 13 years old.? The group gave pt praise and encouragement on this significant milestone. Pt's stressor today is ?I don?t have any.? The group offered pt suggests managing this stressor and emotional support which pt reported was helpful. Pt is feeling ?happy? this morning. Pt receptive to feedback from peers. Benefited from group support, encouragement, and feedback. Progress noted. Pt will continue IOP tx to promote mood stability and reinforce healthy coping skills. ?? Narrative Note: []
--- NOTE | 2025-02-22 10:10 | BH.SGPN.GN ---
Behaviors/Verbalizations/Mental Status: [] Eye contact is good. Motor activity is appropriate. Appearance is disheveled. Speech is Appropriate. Mood is euthymic. Affect is full. Thoughts are linear and logical. No evidence of psychosis. Client Response/Progress/Benefit: [] Pt responded well to session, attentive and engaged. Group participated in the discussion defining stigma as well as the stigma associated with mental health. Interactive discussion on common themes associated with mental health stigma which included being crazy, dramatic, lazy, attention-seeking, fake, broken, weak, or stupid. Pt worked with peers to begin discussion of what reinforces stigma, both socially and internally, and this was discussed further in the next group. Pt appeared to benefit from learning about the different types of stigma as well as gaining awareness of how stigma has personally impacted pt. Will continue in IOP to prevent decompensation, maintain saferty, provide support, increase healthy coping, and improve functioning to return to work. Narrative Note: []
--- NOTE | 2025-02-22 11:10 | BH.SGPN.GN ---
Behaviors/Verbalizations/Mental Status: []Pt alert and oriented, casually dressed and groomed. Eye contact fair. Motor activity appropriate. Speech within normal limits. Affect congruent, mood euthymic. Thoughts linear, logical, no signs of hallucinations or delusions. Client Response/Progress/Benefit: [] Pt engaged participant AEB participating in the activity, providing input during small group discussion, and listening attentively to others. Pt appeared to connect with discussion in the benefits of addressing mental health stigma which included: improved relationships, increased willingness to seek help, increased happiness, and improved confidence. Group brainstormed strategies to combat social and perceived stigma. Pt shared one thing pt can do to combat stigma is to stop telling himself that he is broken beyond control. Appeared to benefit from increasing awareness of strategies to combat stigma. Pt is to continue IOP to promote use of healthy coping skills, challenge distorted thoughts, and prevent decompensation.
== END 2025-02-26 23:59 ==
LOC: BHIOP 08:34
PROVIDERS: Referring Provider Student in an Organized Health Care Education/Training Program; Visit Provider Student in an Organized Health Care Education/Training Program
DX: F33.2 Major depressive disorder, recurrent severe without psychotic features (principal)
CPT/HCPCS: H2012; H2020; S9480; 90832

== ENCOUNTER 2025-02-27 08:04 | Outpatient (RCR) | payer MEDICAID, SELFPAY ==
--- NOTE | 2025-02-28 11:00 | BH.SGPN.GN ---
Behaviors/Verbalizations/Mental Status: []Pt alert and oriented, casual appearance. Eye contact good. Motor activity appropriate. Speech within normal limits. Affect congruent, mood calm. Thoughts linear, logical, no signs of hallucinations or delusions. Client Response/Progress/Benefit: [] Pt responded well to session, contributing to discussion and attentive throughout. Pt identified a negative thought that has kept them stuck. Pt's thought was I?m either right or I?m wrong.? Pt reported when they think this way, pt isolates and misses opportunities. Pt worked to reframe the thought by finding more rational, realistic ways to look at the thoughts and then processed them within group setting. Pt reframed the thought to ?I can be partially right and that?s okay.? Pt appeared to benefit from practicing challenging negative thinking with peers and gaining coping skills. Pt will continue IOP tx to increase self-care practices, improve daily functioning, and combat distortions. ? Narrative Note: []
--- NOTE | 2025-03-01 10:10 | BH.SGPN.GN ---
Behaviors/Verbalizations/Mental Status: [] Eye contact is good. Motor activity is appropriate. Appearance is casual. Speech is Appropriate. Mood is euthymic. Affect is congruent. Thoughts are linear and logical. No evidence of psychosis. Client Response/Progress/Benefit: [] Pt was an active participant and responded well to session AEB input and examples during group activity. Group discussed and practiced methods of reframing cognitive distortions. Client participated in identifying cognitive distortions when examples were provided. Client discussed in group the different strategies to overcome the distortions. Client identified cognitive distortion they used most often and made plan to identify and challenge thoughts that contribute to it as homework over the next couple of days. Will continue tx to promote healthy coping skills, challenge distorted thought patterns, and prevent decompensation.
--- NOTE | 2025-03-01 11:10 | BH.SGPN.GN ---
Behaviors/Verbalizations/Mental Status: []Eye contact is good. Motor activity is appropriate. Appearance is casual. Speech is Appropriate. Mood is hopeful. Affect is congruent. Thoughts are linear and logical. No evidence of psychosis. Client Response/Progress/Benefit: [] Pt was an active participant and responded well to session AEB input and examples during group activity. Group discussed and practiced methods of reframing cognitive distortions. Pt participated in identifying cognitive distortions when examples were provided. Pt discussed in group the different strategies to overcome the distortions. Pt identified cognitive distortion they use most often which is disqualifying the positives and pt reports plan to continue working on reframing these thoughts. Pt did well in small group during experiential activity and helped group identify answers. Will continue IOP tx to promote mood stability, further combat distortions, and increase self-confidence. ? Narrative Note: []
--- NOTE | 2025-03-02 09:05 | BH.SGPN.GN ---
Behaviors/Verbalizations/Mental Status: [] Eye contact is good. Motor activity is appropriate. Appearance is casual. Speech is Appropriate. Mood is euthymic. Affect is full. Thoughts are linear and logical. No evidence of psychosis. Reviewed daily check in sheet and no reports of suicidal ideations Client Response/Progress/Benefit: [] Pt participated at times during the group discussions. Attentive. Shared with the group that he is scheduled to discharge successfully from [facility]. Reports being ?proud? and plans to attend aftercare program. He is also hoping to attend another local support group. Shared his progress in [facility] and believes the program was very beneficial for his mental health as well as his sobriety. ? I feel at peace?. Progress noted. Will be discharged from [facility] today. Narrative Note: []
--- NOTE | 2025-03-02 10:10 | BH.SGPN.GN ---
Behaviors/Verbalizations/Mental Status: [] Eye contact is good. Motor activity is appropriate. Appearance is casual. Speech is Appropriate. Mood is euthymic Affect is congruent. Thoughts are linear and logical. No evidence of psychosis. Client Response/Progress/Benefit: [] Pt was an active participant in group discussion and activity. Attentive during psychoeducation on what it means to take action. Pt identified symptoms that they want to take gain control over which included trust issues, forgiveness, and fear. Increased insight into what could be holding patient back from mental wellness and the importance of taking action on symptoms and obstacles rather than avoiding or ignoring. Client discharging successfully from program today. Narrative Note: []
--- NOTE | 2025-03-02 11:15 | BH.SGPN.GN ---
Behaviors/Verbalizations/Mental Status: [] Pt alert and oriented, neatly dressed and groomed. Eye contact good. Motor activity appropriate. Speech within normal limits. Affect congruent, mood euthymic. Thoughts linear, logical, no signs of hallucinations or delusions. Client Response/Progress/Benefit: [] Pt responded well to session, taking notes and participating in worksheet discussion. Pt connected with the discussion on action steps, and this helped pt learn how to set goals differently. Pt set motion and action steps to goal which included ?list of healthy supports to visit and contacting those supports regularly to reduce isolation.? Appeared to benefit from identifying a small goal to benefit mental health. Pt is discharging program successfully today. Narrative Note: []
--- NOTE | 2025-03-07 17:24 | BH.DS_ITS ---
Discharge Summary Demographics Date of Admission:: 01/06/25 Discharge Date: 03/02/25 Presenting Problems at Admission:: At admission pt states having severe depression, anxiety and PTSD. Is two months clean of methamphetamine use. Reports that depression and anxiety have been there for Most of his life. Patient reports that him and were having more problems secondary to his drug use. Both him and were both using. Lost their apartment and now are homeless and living at [facility]. Has been living there since December 28 and can be there until likely the end of year. Patient admits to having low self esteem. Currently is in a decent mood but this has been very up and down. Describes that little things change his mood very quickly. Did have an aborted suicide attempt in 2021 after putting loaded gun to head. Was subsequently admitted to [facility] following this event. Endorses having regular anxiety, partially secondary to finances. Discharge Diagnoses:: Psychiatric Diagnoses:: Major depression F33.2 Stimulant use disorder, in acute remission Diagnosis Code(s):: F33.2 Reason for Discharge:: Pt has made significant treatment progress since starting IOP and no longer meets criteria for [facility] level of care. Treatment Progress During Treatment & Response: Per DSM 5 cross cutting symptom measure at discharge client's depression decreased by 60%, anxiety decreased by 70%, overall mental health symptoms decreased by 80%. Client has shown resilience throughout the program as evidenced by experiencing the of two people he knows and being able to work through that grief with effective and healthy coping skills. Client has shared throughout the hardships and triggers he's experienced in IOP his thoughts didn't immediately go to thoughts of wanting to or thoughts of wanting to get high. Client noted he couldn't remember the last time in his life that his first solution to adversity wasn't drugs or thoughts of suicide until he has been in this program. Client has reported consistent use of challenging his negative thoughts and perspective with positive impact on his mood. Client's response to treatment was positive AEB consistent attendance, engagement in group, and applying skills outside treatment environment. Issues Still to be Addressed:: Reinforcement of healthy coping skills, maintenance of sobriety from cannabis and meth. Client could benefit from couples counseling once he feels consistent stability with his own mood. Discharge Recommendations/Instructions:: Client is established with [facility] for counseling and will continue to follow up with his counselor, starting back with his therapist next week. Client will start [facility] Aftercare Group program next week. Client reports being established for psychiatry services and will continue to seek treatment for medication management. Discharge Handout
== END 2025-03-02 12:24 | disposition home or self-care (01) ==
LOC: BHIOP 08:04
PROVIDERS: Referring Provider Student in an Organized Health Care Education/Training Program; Visit Provider Student in an Organized Health Care Education/Training Program
DX: F33.2 Major depressive disorder, recurrent severe without psychotic features (principal); F15.91 Other stimulant use, unspecified, in remission
CPT/HCPCS: H2012; H2020; S9480; 90832

== ENCOUNTER 2025-03-09 14:19 | Outpatient (RCR) | payer MEDICAID, SELFPAY ==
--- NOTE | 2025-03-09 14:00 | BH.SGPN.GN ---
Behaviors/Verbalizations/Mental Status: []Pt alert and oriented, casually dressed and groomed. Eye contact good. Motor activity appropriate. Speech within normal limits. Affect congruent, mood euthymic. Thoughts linear, logical, no signs of hallucinations or delusions. Client Response/Progress/Benefit: [] Pt responded well to session, completed their self-reflection worksheet. Pt noted they have met with their therapist since last session, they have been taking medication consistently, and used coping skills like deep breathing, PMR, DDD, giving himself credit, and maintaining sobriety from cannabis and meth. Pt engaged well during the discussion of the components of self-compassion. Pt connected with the benefits of self-compassion and participated in the activity of reframing a recent setback using self-compassion. Pt used self-compassion to combat negative self-talk and shared plan to work on this throughout the week.?Pt appeared to benefit from practicing self-compassion and connecting with peers. Will continue aftercare to promote mood stability and reinforce healthy coping skills.? Narrative Note: []
--- NOTE | 2025-03-09 14:30 | BH.COMM ---
Communication Note Communication with Client Communication Note: Patient completed IOP and presents today to start relapse prevention group which meets once weekly (1.5 hours) for 8 weeks. Case discussed with Dr. Neil with plan to admit with dx of F32.9
== END 2025-03-29 23:59 ==
LOC: BHOG 14:19
PROVIDERS: Referring Provider Student in an Organized Health Care Education/Training Program; Visit Provider Student in an Organized Health Care Education/Training Program
DX: F32.9 Major depressive disorder, single episode, unspecified (principal)
CPT/HCPCS: 90853